=== PATIENT | male | born 1960 | race Caucasian/White ===

== ENCOUNTER → 2016-12-04 | Outpatient (CLI) | payer MEDICARE, MEDICAID ==
[~2016-12-04] MED LIST: ACHD5005 PO; ALBU17AE23 IH; ALDACTONE25 MG PO; AMIO200T2 PO; AMIO400T5 PO; ASP325T PO; ASP325TEC; ASP325TEC PO; ASP81CT PO; ATOR40TA; AZIT-21; BUDE90AE IH; CARV6.25; CARV6.252 PO; CEFD300C3 PO; CEFU500T5 PO; CLON0.252 PO; CLOP75TA PO; CLPD75T PO; CRV25T PO; DABI150C5 PO; DCS100C PO; DEXL60CA PO; DIGO250T96 PO; DLT120CCR PO; DOCU100T7 PO; DOXY100C2 PO; FAMO20TA13 PO; FRSM40T; FURO80TA3 PO; GLMP4T PO; HYDR-3730 PO; ISM30TCR PO; ISM60TCR; KCL10CCR; KCL20TCR; KCL20TCR PO; LANS30CA PO; LASIX; LEVO750T6 PO; LISI5TAB PO; LNS30CCR; LSRT50T; LVT.1T PO; METF-380 PO; MGX400T PO; MTF500T; MULT1TAB63; MULT1TAB63 PO; NITR0.3T6 SL; NTR.4SL SL; OLME5TAB3 PO; OMG1KC PO; PANT40TA PO; PHN100C PO; POLY119P PO; POTA10TA86 PO; RT-ALBUTEROL SULF 2.5 MG/3 ML PRE-MIX VIAL INH ONE; SCR1T1; SIMV80TA3; SPRN25T; STOOL SOFTENER; WARFARIN 7.5 MG; WRF10T; WRF5T
--- OUTSIDE RECORDS SUMMARY | 2016-12-04 13:05 | XMS REPORT | Continuity of Care Document ---
Author Author [facility] Organization [facility] Address Unknown Phone Unavailable Care Team Providers Care Payroll Lead Name Role Phone BRENDAN UGARTE DO PCP Insurance Providers Payer Name Policy Number Subscriber Name Relationship Wps Medicare [id number] Mis Hoang 18 Self / Same As Patient Medicaid [place] [id number] Mis Hoang 20 Self / Same As Patient Advance Directives Directive Response Recorded Date/Time Advance Directives No 02/26/15 6:00pm Health Care Power of Real Estate Development Manager No 02/26/15 6:00pm Organ Donor Yes 02/26/15 6:00pm Resuscitation Status Full Code 02/26/15 6:00pm Problems Medical Problems Problem Onset Date Status Bronchitis Unknown Active Medications Medication Dose Route Sig Days/Qty Instructions Order Date Discontinued Date Status Furosemide 06/05/07 12/08/07 Discontinued Furosemide 06/05/07 12/08/07 Discontinued Potassium Chloride 06/05/07 12/08/07 Discontinued Aspirin 06/05/07 12/08/07 Discontinued Carvedilol 06/05/07 03/08/09 Discontinued Losartan Potassium 06/05/07 03/08/09 Discontinued Spironolactone 06/05/07 12/08/07 Discontinued Warfarin Sodium 06/05/07 12/08/07 Discontinued Warfarin Sodium 06/05/07 12/08/07 Discontinued Lansoprazole 06/05/07 12/08/07 Discontinued Multivitamins 1 Tab PO DAILY 06/05/07 Active Atorvastatin Calcium 06/05/07 12/08/07 Discontinued Atorvastatin Calcium 09/06/07 03/08/09 Discontinued Lansoprazole 09/06/07 12/08/07 Discontinued Furosemide 09/06/07 12/08/07 Discontinued Furosemide 09/06/07 12/08/07 Discontinued Warfarin Sodium 09/06/07 12/08/07 Discontinued Warfarin Sodium 09/06/07 12/08/07 Discontinued Potassium Chloride 09/06/07 12/08/07 Discontinued Carvedilol 09/06/07 12/08/07 Discontinued Losartan Potassium 09/06/07 12/08/07 Discontinued Spironolactone 09/06/07 04/03/09 Discontinued Isosorbide Mononitrate 09/06/07 09/16/08 Discontinued Aspirin 325 Mg PO daily 09/06/07 03/23/13 Discontinued Magnesium Oxide 400 Mg PO DAILY 09/06/07 Active Sucralfate 09/06/07 12/08/07 Discontinued Multivitamins 09/06/07 09/16/08 Discontinued [Stool Softener] 09/06/07 12/08/07 Discontinued Fish Oil 1 PO daily 09/06/07 02/26/11 Discontinued [Lasix] 12/08/07 12/08/07 Discontinued Furosemide 12/08/07 03/08/09 Discontinued [Warfarin 7.5MG] 12/08/07 09/16/08 Discontinued Losartan Potassium 12/08/07 03/08/09 Discontinued Potassium Chloride 12/08/07 03/08/09 Discontinued Carvedilol 12/08/07 09/16/08 Discontinued Lansoprazole 12/08/07 09/16/08 Discontinued [Stool Softener] 12/08/07 03/08/09 Discontinued Metformin HCl (Glucophage) 12/08/07 09/16/08 Discontinued Metformin HCl 09/16/08 01/25/10 Discontinued Lansoprazole 09/16/08 01/25/10 Discontinued Clopidogrel Bisulfate 75 Mg PO DAILY 09/16/08 07/21/12 Discontinued Azithromycin (Zpak) 03/08/09 03/08/09 Discontinued Olmesartan Medoxomil 1 Each PO DAILY 03/08/09 02/26/11 Discontinued Carvedilol 1 Each PO TWICE A DAY 03/08/09 02/24/11 Discontinued Simvastatin 03/08/09 01/25/10 Discontinued [Stool Softener] 03/08/09 02/26/11 Discontinued Furosemide (Lasix) 1 Each PO bid 04/03/09 02/26/11 Discontinued Potassium Chloride 4 Each PO DAILY 04/03/09 02/24/11 Discontinued Levofloxacin 1 Each PO DAILY 5 Qty FOR INFECTION 08/07/09 01/25/10 Discontinued Albuterol 2 Gm IH Q 4 HOURS 1 Qty 08/07/09 01/25/10 Discontinued Metformin HCl (Glucophage) 1 Each PO TWICE A DAY WITH MEALS 01/25/10 01/09/12 Discontinued Famotidine 1 Tab PO TWICE A DAY 01/25/10 01/09/12 Discontinued Spironolactone 25 Mg PO TWICE A DAY 06/16/10 Active Potassium Chloride 20 Meq PO DAILY 02/24/11 Active Fish Oil 1,000 Mg PO DAILY 02/24/11 Active Olmesartan Medoxomil 5 Mg PO DAILY 02/24/11 07/21/12 Discontinued Carvedilol (Coreg) 6.25 Mg PO TWICE A DAY 02/24/11 Active Isosorbide Mononitrate 30 Mg PO DAILY 02/24/11 Active Furosemide (Lasix) 80 Mg PO TWICE A DAY 02/24/11 Active Phenytoin Sodium 200 Mg PO TWICE A DAY TAKES 2(100MG) CAPSULES AM AND PM , AND TAKES 1 (100MG) CAPSULE AT 1200 02/24/11 Active Lansoprazole 30 Mg PO DAILY 02/24/11 02/26/11 Discontinued Pantoprazole Sodium 40 Mg PO DAILY 02/26/11 07/21/12 Discontinued Glimepiride 4 Mg PO DAILY 01/09/12 Active Nitroglycerin 0.4 Mg SL NEEDED 01/09/12 08/24/13 Discontinued Acetaminophen/Hydrocodone Bitart 1 Each PO EVERY 8HRS PRN 10 Qty 07/21/12 Discontinued Cefuroxime Axetil (Ceftin) 500 Mg PO TWICE A DAY FOR 5 DAYS 01/09/12 07/21/12 Discontinued Famotidine 20 Mg PO DAILY 1 Qty 07/21/12 03/23/13 Discontinued Lisinopril 20 Mg PO TWICE A DAY 07/21/12 Active Clonazepam 0.25 Mg PO NEEDED 07/21/12 03/23/13 Discontinued Aspirin 325 Mg PO DAILY 03/23/13 03/24/13 Discontinued Dabigatran Etexilate Mesylate 150 Mg PO TWICE A DAY 03/23/13 Active Dexlansoprazole 60 Mg PO DAILY 03/23/13 Active Aspirin 81 Mg PO EVERY OTHER DAY 03/24/13 Active Clopidogrel Bisulfate 75 Mg PO DAILY 03/24/13 05/20/14 Discontinued Digoxin 0.25 Mg PO ,,SA,ESTEVES 08/24/13 Active Digoxin 0.5 Mg PO MON,WED,Fri08/24/13 Active Diltiazem HCl 120 Mg PO DAILY 08/24/13 Active Phenytoin Sodium 100 Mg PO DAILY @ 1200 TAKES 2(100MG) CAPSULES AM AND PM, AND TAKES 1 (100MG) CAPSULE AT 1200 08/24/13 Active Clonazepam 0.25 Mg PO DAILY PRN 08/24/13 Active Nitroglycerin 0 SL NEEDED 1 TAB EVERY 5 MINUTES X 3 DOSES NEEDED FOR CHEST PAIN 08/24/13 Active Docusate Sodium 100 Mg PO DAILY 08/24/13 05/20/14 Discontinued Polyethylene Glycol 0 PO DAILY 05/20/14 Active Levothyroxine Sodium (Levothroid) 100 Mcg PO DAILY 02/26/15 Active Amiodarone Hcl 200 Mg PO 02/26/15 Active Amiodarone Hcl 400 Mg PO DAILY 02/26/15 Active Cefdinir (Omnicef) 1 Each PO TWICE A DAY 20 Qty 02/26/15 Active Budesonide 90 Mcg IH TWICE A DAY 1 Qty 02/26/15 Active Social History Social History Problem Response Recorded Date/Time Alcohol Use Denies Use 02/26/2015 6:00pm Recreational Drug Use No 02/26/2015 6:00pm Recent Foreign Travel No 05/20/2014 8:00pm Recent Infectious Disease Exposure No 05/20/2014 8:00pm Hospitalization with Isolation Denies 05/21/2014 1:55pm Sexually Transmitted Disease No 02/26/2015 6:00pm HIV/AIDS No 02/26/2015 6:00pm Smoking Status Never a Smoker 02/26/2015 6:00pm Query Response Start Date Stop Date Smoking Status Never a Smoker Hospital Discharge Instructions No hospital discharge instructions. Plan of Care No plan of care. Functional Status No functional status results. Allergies, Adverse Reactions, Alerts Allergen Type Severity Reaction Status Last Updated No Known Drug Allergies Active 09/06/07 Immunizations Name Given Type Date of Pneumonia Vaccine 09/22/12 Historical Date of Influenza Vaccine 08/09/13 Historical Vital Signs Acute Vital Signs Vital Response Date/Time Temperature (Fahrenheit) 99 degrees F (97.6 - 99.5) Temperature (Calculated Celsius) 37.2252 degrees C (36.4 - 37.5) Pulse Rate (adult) 72 bpm (60 - 90) Respiratory Rate 18 bpm (12 - 24) O2 Sat by Pulse Oximetry 93 % (88 - 100) Blood Pressure 114/80 mm Hg Pain Pain Intensity 0 Height (Feet) 5 feet Height (Inches) 10.00 inches Height (Calculated Centimeters) 177.102909 cm Weight (Pounds) 228 pounds Weight (Ounces) 8.0 oz Weight (Calculated Grams) 402149.858 gm Weight (Calculated Kilograms) 103.466800 kilograms Calculated BMI 28.12 Results Laboratory Results Test Name Result Units Flags Reference Collection Date/Time Result Date/ Time Comments White Blood Count 8.5 10^3/uL 4.3-11.0 02/26/2015 6:27pm 02/26/2015 6: 36pm Red Blood Count 4.52 10^6/uL 4.35-5.85 02/26/2015 6:27pm 02/26/2015 6: 36pm Hemoglobin 14.7 G/DL 13.3-17.7 02/26/2015 6:pm 02/26/2015 6:36pm Hematocrit 43 % 40-54 02/26/2015 6:02/26/2015 6:36pm Mean Corpuscular Volume 96 FL 80-99 02/26/2015 6:pm 02/26/2015 6: 36pm Mean Corpuscular Hemoglobin 33 PG 25-34 02/26/2015 6:pm 02/26/2015 6: 36pm Mean Corpuscular Hemoglobin Concent 34 G/DL 32-36 02/26/2015 6:pm 6:36pm Red Cell Distribution Width 13.7 % 10.0-14.5 02/26/2015 6:27pm 2014 6:36pm Platelet Count 159 10^3/uL 130-400 02/26/2015 6:02/26/2015 6:36pm Mean Platelet Volume 9.9 FL 7.4-10.4 02/26/2015 6:27pm 02/26/2015 6: 36pm Neutrophils (%) (Auto) 62 % 42-75 02/26/2015 6:pm 02/26/2015 6:36pm Lymphocytes (%) (Auto) 22 % 12-44 02/26/2015 6:pm 02/26/2015 6:36pm Monocytes (%) (Auto) 12 % 0-12 02/26/2015 6:pm 02/26/2015 6:36pm Eosinophils (%) (Auto) 3 % 0-10 02/26/2015 6:pm 02/26/2015 6:36pm Basophils (%) (Auto) 0 % 0-10 02/26/2015 6:pm 02/26/2015 6:36pm Neutrophils # (Auto) 5.3 X 10^3 1.8-7.8 02/26/2015 6:27pm 02/26/2015 6: 36pm Lymphocytes # (Auto) 1.9 X 10^3 1.0-4.0 02/26/2015 6:pm 02/26/2015 6: 36pm Monocytes # (Auto) 1.0 X 10^3 0.0-1.0 02/26/2015 6:27pm 02/26/2015 6: 36pm Eosinophils # (Auto) 0.3 10^3/uL 0.0-0.3 02/26/2015 6:27pm 02/26/2015 6 :36pm Basophils # (Auto) 0.0 10^3/uL 0.0-0.1 02/26/2015 6:pm 02/26/2015 6: 36pm Prothrombin Time 18.4 SEC H 12.2-14.7 02/26/2015 6:pm 02/26/2015 6: 47pm INR Comment 1.6 H 0.8-1.4 02/26/2015 6:02/26/2015 6:47pm INTERPRETIVE DATA SUGGESTED THERAPEUTIC RANGE FOR INR'S: VENOUS THROMBOSIS, PULMONARY EMBOLISM, OR PREVENTION OF SYSTEMIC EMBOLISM (EG. IN ATRIAL FIBRILLATION): 2.0 - 3.0 MECHANICAL PROSTHETIC HEART VALVES: 2.5 - 3.5* *NOTE: INR'S UP TO 4.5 MAY BE NECESSARY IN SELECTED GROUPS OF HIGH RISK PATIENTS. [employer] [place] [employer] CONSENSUS CONFERENCE ON ANTITHROMBOTIC THERAPY (2000). Activated Partial Thromboplast Time 45 SEC H 24-35 02/26/2015 6: 6:47pm Sodium Level 138 MMOL/L 135-145 02/26/2015 6:02/26/2015 7:13pm Potassium Level 4.1 MMOL/L 3.6-5.0 02/26/2015 6:02/26/2015 7:13pm Chloride Level 102 MMOL/L 98-107 02/26/2015 6:02/26/2015 7:13pm Carbon Dioxide Level 24 MMOL/L 21-32 02/26/2015 6:02/26/2015 7: 13pm Blood Urea Nitrogen 16 MG/DL 7-18 02/26/2015 6:02/26/2015 7:13pm Creatinine 0.90 MG/DL 0.60-1.30 02/26/2015 6:02/26/2015 7:13pm BUN/Creatinine Ratio 18 02/26/2015 6:02/26/2015 7:13pm Estimat Glomerular Filtration Rate > 60 02/26/2015 6:2014 7:13pm GFR INTERPRETIVE DATA UNITS FOR ESTIMATED GFR (eGFR): mL/min/1.73 M2 REFERENCE RANGE FOR ESTIMATED GFR (eGFR) eGFR NORMAL eGFR >60 MODERATELY DECREASED eGFR 30-59 SEVERLY DECREASED eGFR 15-29 KIDNEY FAILURE <15 (OR DIALYSIS) Glucose Level 80 MG/DL 70-105 02/26/2015 6:02/26/2015 7:13pm Calcium Level 8.7 MG/DL 8.5-10.1 02/26/2015 6:02/26/2015 7:13pm Magnesium Level 1.9 MG/DL 1.8-2.4 02/26/2015 6:02/26/2015 7:20pm Total Bilirubin 0.9 MG/DL 0.1-1.0 02/26/2015 6:02/26/2015 7:13pm Alkaline Phosphatase 122 U/L 40-136 02/26/2015 6:02/26/2015 7: 13pm Aspartate Amino Transf (AST/SGOT) 25 U/L 5-34 02/26/2015 6:272014 7:13pm Alanine Aminotransferase (ALT/SGPT) 25 U/L 0-55 02/26/2015 6:27pm 02/26 7:13pm Troponin I < 0.30 NG/ML <0.30 02/26/2015 6:27pm 02/26/2015 7:13pm B-Type Natriuretic Peptide 752.9 PG/ML H <100.0 02/26/2015 6:2014 7:18pm Total Protein 7.0 G/DL 6.4-8.2 02/26/2015 6:02/26/2015 7:13pm Albumin 3.8 G/DL 3.2-4.5 02/26/2015 6:pm 02/26/2015 7:13pm Digoxin Level < 0.30 NG/ML L 0.80-2.00 02/26/2015 6:27pm 02/26/2015 7: 13pm Phenytoin (Dilantin) Level 12.8 UG/ML 10.0-20.0 02/26/2015 6:27pm 02/26 7:13pm Procedures Procedure Status Date Provider(s) Tracing only of electrocardiogram completed 02/26/15 AMAURI WANG DO Encounters Encounter Location Date/Time Departed Emergency Room Via [facility] 02/26/15 5:53pm Recent Diagnosis
== END ==
LOC: RT 13:02
PROVIDERS: ATTEND Internal Medicine Critical Care Medicine
DX: J98.4 Other disorders of lung (principal); E66.9 Obesity, unspecified
CPT/HCPCS: 94060; 94640; 94726; 94729

== ENCOUNTER → 2016-12-20 | Outpatient (CLI) | payer MEDICARE, MEDICAID ==
[~2016-12-20] MED LIST changes: -RT-ALBUTEROL SULF 2.5 MG/3 ML PRE-MIX VIAL INH ONE
--- OUTSIDE RECORDS SUMMARY | 2016-12-20 09:29 | XMS REPORT | Continuity of Care Document ---
Author Author [facility] Organization [facility] Address Unknown Phone Unavailable Care Team Providers Care Training And Quality Manager Name Role Phone BRENDAN UGARTE DO PCP Insurance Providers Payer Name Policy Number Subscriber Name Relationship Wps Medicare [id number] Mis Hoang 18 Self / Same As Patient Medicaid [place] [id number] Mis Hoang 20 Self / Same As Patient Advance Directives Directive Response Recorded Date/Time Advance Directives No 02/26/15 6:00pm Health Care Power of Diver Pumper No 02/26/15 6:00pm Organ Donor Yes 02/26/15 [...] Height (Inches) 10.00 inches Height (Calculated Centimeters) 177.635754 cm Weight (Pounds) 228 pounds Weight (Ounces) 8.0 oz Weight (Calculated Grams) 725510.858 gm Weight (Calculated Kilograms) 103.758028 kilograms Calculated BMI 28.12 Results Laboratory Results [...] SELECTED GROUPS OF HIGH RISK PATIENTS. [employer] [place] [employer] CONSENSUS CONFERENCE ON [...] Encounter Location Date/Time Departed Emergency Room Via [facility] 02/26/15 5:53pm Recent Diagnosis
--- NOTE | 2016-12-20 12:09 | Diagnostic Imaging Report ---
PROCEDURE: CT chest without contrast. TECHNIQUE: Multiple contiguous axial images were obtained through the chest without the use of intravenous contrast. INDICATION: Dyspnea. COPD, shortness of breath. FINDINGS: There is no significant consolidation, mass, or suspicious nodule in the lungs. There is calcified granuloma in the right lung base. There is minimal atelectasis in the dependent posterior aspect of the right lower lobe in the base. There is no pleural effusion. The cardiac size is enlarged with prominent coronary artery calcifications seen. There is a pacemaker with three cardiac leads seen. There is no mediastinal mass. No mediastinal lymphadenopathy noted. The hilar vessels are not opacified on this exam with no obvious hilar mass. There is no axillary lymphadenopathy. There is healed sternotomy noted with sternotomy wires in place. Sections in the upper abdomen demonstrate mild ascites. The osseous structures demonstrate mild degenerative changes. IMPRESSION: 1. Cardiomegaly with no evidence of pulmonary edema. Minimal right basilar atelectasis. 2. Ascites seen in the upper sections of the abdomen. Dictated by: Dictated on workstation # [id number]
== END ==
LOC: RAD 09:24
PROVIDERS: ATTEND Internal Medicine Critical Care Medicine
DX: R06.00 Dyspnea, unspecified (principal); J98.4 Other disorders of lung; E66.9 Obesity, unspecified
CPT/HCPCS: 71250

== ENCOUNTER 2016-12-22 11:18 | Emergency (ER) | payer MEDICARE, MEDICAID ==
[~2016-12-22] VITALS: Ht 177.8 cm; Wt 113.4 kg
--- OUTSIDE RECORDS SUMMARY | 2016-12-22 11:24 | XMS REPORT | Continuity of Care Document ---
Author Author [facility] Organization [facility] Address Unknown Phone Unavailable Care Team Providers Care Soft Drink Powder Mixer Name Role Phone BRENDAN UGARTE DO PCP Insurance Providers Payer Name Policy Number Subscriber Name Relationship Wps Medicare [id number] Mis Hoang 20 Self / Same As Patient Medicaid [place] [id number] Mis Hoang 20 Self / Same As Patient Advance Directives Directive Response Recorded Date/Time Advance Directives No 02/26/15 6:00pm Health Care Power of Rail Operator No 02/26/15 6:00pm Organ Donor Yes 02/26/15 [...] Height (Inches) 10.00 inches Height (Calculated Centimeters) 177.758944 cm Weight (Pounds) 228 pounds Weight (Ounces) 8.0 oz Weight (Calculated Grams) 333853.858 gm Weight (Calculated Kilograms) 103.051618 kilograms Calculated BMI 28.12 Results Laboratory Results [...] SELECTED GROUPS OF HIGH RISK PATIENTS. [employer] [place] [employer] CONSENSUS CONFERENCE ON [...] Encounter Location Date/Time Departed Emergency Room Via [facility] 02/26/15 5:53pm Recent Diagnosis
--- NOTE | 2016-12-22 11:35 | ED Chest Pain ---
General Chief Complaint: Respiratory Problems Stated Complaint: SOA/UNABLE TO URINATE Nursing Triage Note: AMBULATED TO ROOM 07 WITH COMPLAINTS OF SOA ET RETAINING FLUID X2 DAYS. STATES HE HAS BEEN TAKING AN EXTRA LASIX THE PAST TWO DAYS. Nursing Sepsis Screen: No Definite Risk Source: patient Exam Limitations: no limitations History of Present Illness Time seen by provider: 11:32 Initial Comments 2-3 days of shortness of breath, midsternal aching in the chest on deep inspiration and swelling of the belly and hands and feet. The patient started taking an extra dose of Lasix on top of his 80 mg twice a day Lasix 2 days ago but has not felt that this helped. He presents today because he is short of breath with a mild occasional cough, malaise, fatigue. No history of fever, chills, nausea, vomiting, diarrhea, constipation, skin rash. The patient states she had a chest x-ray about a month ago showing something wrong with his lung but is not aware of what it is. He also states that last week he was told he has COPD. Patient states he quit drinking over 10 years ago never a smoker and does not use recreational or IV drugs. Allergies and Home Medications Allergies Coded Allergies: No Known Drug Allergies (Verified , 09/06/07) Home Medications Amiodarone Hcl 200 Mg Tablet 200 MG PO DAILY (Reported) Aspirin 81 Mg Chew 81 MG PO EVERY OTHER DAY (Reported) Carvedilol 6.25 Mg Tablet 6.25 MG PO BID (Reported) Dabigatran Etexilate Mesylate 150 Mg Capsule 150 MG PO BID (Reported) Dexlansoprazole 60 Mg 60 MG PO DAILY (Reported) Furosemide 80 Mg Tablet 80 MG PO BID (Reported) Glimepiride 4 Mg Tab 4 MG PO DAILY (Reported) Hydrocodone/Acetaminophen 1 Each Tablet #35 1-2 EACH PO Q6H Prescribed by: MAX THOMSON on 04/13/15 1436 Isosorbide Mononitrate 30 Mg Tab 30 MG PO DAILY (Reported) Levothyroxine Sodium 100 Mcg Tablet 100 MCG PO DAILY (Reported) Lisinopril 5 Mg Tablet 20 MG PO BID (Reported) Magnesium Oxide 400 Mg Tab 400 MG PO DAILY (Reported) Multivitamins 1 Ea Tablet 1 TAB PO DAILY (Reported) Nitroglycerin 0.4 Mg Tab 0 SL PRN (Reported) 1 TAB EVERY 5 MINUTES X 3 DOSES NEEDED FOR CHEST PAIN [place] 3 Polyunsat Fatty Acids 1,000 Mg Cap 1,000 MG PO DAILY (Reported) Phenytoin Sodium 100 Mg Cap 200 MG PO BID (Reported) TAKES 2(100MG) CAPSULES AM AND PM, AND TAKES 1 (100MG) CAPSULE AT 1200 Phenytoin Sodium 100 Mg Cap 100 MG PO DAILY @ 1200 (Reported) TAKES 2(100MG) CAPSULES AM AND PM, AND TAKES 1 (100MG) CAPSULE AT 1200 Polyethylene Glycol 119 Gm Btl 0 PO DAILY (Reported) 17 GM Spironolactone 25 Mg Tablet 25 MG PO BID (Reported) Review of Systems Constitutional: No chills, No diaphoresis, No fever, No malaise, weight gain EENTM: No Throat Swelling Respiratory: Cough SOA With ExertionDenies Wheezing Cardiovascular: Chest Pain Edema (aching F abdomen and bilateral feet and hands) Gastrointestinal: Abdomen DistendedDenies Abdominal Pain, Denies Constipated, Denies Diarrhea, Denies Nausea Genitourinary: Denies Burning, Denies Discharge, Denies Drainage Musculoskeletal: No joint pain, No joint swelling Skin: No pruritus, No rash Endocrine: Denies Excessive Sweating, Denies Flushing Hematologic/Lymphatic: Denies Easy Bleeding, Denies Easy Bruising Past Zvwtrjt-Ttqeyf-Agdmvc Hx Patient Social History Alcohol Use: Past History (quit 10 years ago) Recreational Drug Use: No Smoking Status: Never a Smoker Recent Foreign Travel: No Contact w/Someone Who Travel: No Recent Infectious Disease Expo: No Recent Hopitalizations: Yes (BIPASS, PACER, BROKEN ANKLE AND ARM) Immunizations Up To Date Date of Pneumonia Vaccine: Sep 22, 2012 Date of Influenza Vaccine: Aug 09, 2013 Surgeries HX Surgeries: Yes (LEFT ANKLE, HIATAL HERNIA, SEBACEOUS CYST/BACK, EGD) Surgeries: Abdominal, Cardiac, CABG, Coronary Stent, Defibrillator, Orthopedic , Pacemaker Respiratory Hx Respiratory Disorders: Yes Respiratory Disorders: Chronic Bronchitis, COPD, Emphysema Cardiovascular Hx Cardiac Disorders: Yes (CABG X 3, STENTS X 2 , PACEMAKER /DEFIB, SEVERE PULMONARY HTN, CHF) Cardiac Disorders: Atrial Fibrillation, Chronic Edema/Swelling, Coronary Artery Disease, Heart Attack, High Cholesterol, Hypertension, Peripheral Vascular Neurological Hx Neurological Disorders: No Neurological Disorders: Seizure Disorder Reproductive System Hx Reproductive Disorders: No Sexually Transmitted Disease: No HIV/AIDS: No Genitourinary Hx Genitourinary Disorders: No Gastrointestinal Hx Gastrointestinal Disorders: Yes Gastrointestinal Disorders: Gastroesophageal Reflux, Liver Disease/Jaundice, Hiatal Hernia, Ulcer Musculoskeletal Hx Musculoskeletal Disorders: Yes (LEFT ANKLE SURGERY) Musculoskeletal Disorders: Arthritis Endocrine Hx Endocrine Disorders: Yes Endocrine Disorders: Hypothyroidsim, Diabetes, Non-Insulin dep HEENT HX ENT Disorders: Yes (glasses) Loss of Vision: Denies Hearing Impairment: Denies Cancer Hx Cancer: No Psychosocial Hx Psychiatric Problems: No Integumentary HX Skin/Integumentary Disorder: No Blood Transfusions Hx Blood Disorders: No Adverse Reaction to a Blood Tr: No Family Medical History Family Medial History: Chest pain 19 FATHER Family history: Arthritis 19 FATHER Family history: Cardiovascular disease 19 FATHER G8 BROTHER Myocardial infarction 19 FATHER Physical Exam Vital Signs Vital Sign - Last 12Hours 12/22/16 12/22/16 11:28 11:49 Temp 97.6 Pulse 125 Resp 20 B/P 123/105 Pulse Ox 96 O2 Delivery Room Air O2 Flow Rate 2 Capillary Refill : Less Than 3 Seconds General Appearance: No Apparent Distress WD/WN HEENT: PERRL/EOMI TMs Normal Normal ENT Inspection Pharynx Normal Neck: Normal Inspection SuppleNo JVD Respiratory: Chest Non Tender Lungs Clear Normal Breath Sounds No Accessory Muscle Use No Respiratory Distress Cardiovascular: No JVD Normal Peripheral Pulses Irregularly Irregular Other ( swelling in his hands and abdomen and feet 1+ edema) Gastrointestinal: Normal Bowel Sounds Non Tender Soft Extremity: Normal Capillary Refill Normal Range of Motion No Calf Tenderness Pedal Edema Neurologic/Psychiatric: Alert Oriented x3 Normal Mood/Affect Skin: Normal Color Warm/Dry Progress/Results/Core Measures Results/Orders Lab Results Laboratory Tests Test 12/22/16 12:04 12/22/16 12:42 Range/Units Activated Partial Thromboplast Time 41 H 24-35 SEC Alanine Aminotransferase (ALT/SGPT) 33 0-55 U/L Albumin 2.9 L 3.2-4.5 G/DL Alkaline Phosphatase 100 40-136 U/L Anion Gap 7 5-14 MMOL/L Aspartate Amino Transf (AST/SGOT) 24 5-34 U/L B-Type Natriuretic Peptide 661.4 H <100.0 PG/ML BUN/Creatinine Ratio 30 Basophils # (Auto) 0.0 0.0-0.1 10^3/uL Basophils (%) (Auto) 0 0-10 % Blood Urea Nitrogen 26 H 7-18 MG/DL Calcium Level 7.5 L 8.5-10.1 MG/DL Carbon Dioxide Level 26 21-32 MMOL/L Chloride Level 104 98-107 MMOL/L Creatinine 0.87 0.60-1.30 MG/DL Eosinophils # (Auto) 0.1 0.0-0.3 10^3/uL Eosinophils (%) (Auto) 1 0-10 % Estimat Glomerular Filtration Rate > 60 Glucose Level 114 H 70-105 MG/DL Hematocrit 44 40-54 % Hemoglobin 15.3 13.3-17.7 G/DL INR Comment 1.5 H 0.8-1.4 Lymphocytes # (Auto) 2.1 1.0-4.0 X 10^3 Lymphocytes (%) (Auto) 21 12-44 % Magnesium Level 2.0 1.8-2.4 MG/DL Mean Corpuscular Hemoglobin 33 25-34 PG Mean Corpuscular Hemoglobin Concent 35 32-36 G/DL Mean Corpuscular Volume 95 80-99 FL Mean Platelet Volume 10.4 7.4-10.4 FL Monocytes # (Auto) 1.2 H 0.0-1.0 X 10^3 Monocytes (%) (Auto) 12 0-12 % Myoglobin 71.4 10.0-92.0 NG/ML Neutrophils # (Auto) 6.9 1.8-7.8 X 10^3 Neutrophils (%) (Auto) 67 42-75 % Platelet Count 153 130-400 10^3/uL Potassium Level 4.1 3.6-5.0 MMOL/L Prothrombin Time 18.1 H 12.2-14.7 SEC Red Blood Count 4.69 4.35-5.85 10^6/uL Red Cell Distribution Width 13.7 10.0-14.5 % Sodium Level 137 135-145 MMOL/L Total Bilirubin 0.5 0.1-1.0 MG/DL Total Protein 4.9 L 6.4-8.2 G/DL Troponin I < 0.30 <0.30 NG/ML White Blood Count 10.3 4.3-11.0 10^3/uL Urine Bacteria NEGATIVE /HPF Urine Bilirubin NEGATIVE NEGATIVE Urine Casts PRESENT /LPF Urine Clarity CLEAR Urine Color YELLOW Urine Crystals NONE /LPF Urine Culture Indicated NO Urine Glucose (UA) NEGATIVE NEGATIVE Urine Hyaline Casts 25-50 H /LPF Urine Ketones NEGATIVE NEGATIVE Urine Leukocyte Esterase NEGATIVE NEGATIVE Urine Mucus NEGATIVE /LPF Urine Nitrite NEGATIVE NEGATIVE Urine Protein NEGATIVE NEGATIVE Urine RBC NONE /HPF Urine RBC (Auto) NEGATIVE NEGATIVE Urine Specific [place] 1.015 L 1.016-1.022 Urine Squamous Epithelial Cells RARE /HPF Urine Urobilinogen 1 NORMAL MG/DL Urine WBC NONE /HPF Urine pH 6.5 5-9 My Orders Orders-ITZ HUGHES MD Cbc With Automated Diff (12/22/16 11:35) Magnesium (12/22/16 11:35) Ekg Tracing (12/22/16 11:35) Cardiac Profile 1 (12/22/16 11:35) Comprehensive Metabolic Panel (12/22/16 11:35) Myoglobin Serum (12/22/16 11:35) Protime With Inr (12/22/16 11:35) Partial Thromboplastin Time (12/22/16 11:35) O2 (12/22/16 11:35) Monitor-Rhythm Ecg Trace Only (12/22/16 11:35) Aspirin Chewable Tablet (Baby Aspirin Ch (12/22/16 11:45) Saline Lock/Iv-Start (12/22/16 11:35) BNP (12/22/16 11:35) Chest Pa/Lat (2 View) (12/22/16 11:35) Furosemide Injection (Lasix Injection) (12/22/16 12:15) Ua Culture If Indicated (12/22/16 12:11) Troponin I (12/22/16 13:53) Medications Given in ED Current Medications Medications Dose Ordered Sig/Ericka Route Start Time Stop Time Status Last Admin Dose Admin Aspirin 324 mg ONCE ONCE PO 12/22/16 11:45 12/22/16 11:46 DC 12/22/16 12:41 324 MG Furosemide 80 mg ONCE ONCE IVP 12/22/16 12:15 12/22/16 12:16 DC 12/22/16 12:41 80 MG Vital Signs/I&O Vital Sign - Last 12Hours 12/22/16 12/22/16 12/22/16 11:28 11:49 14:49 Temp 97.6 98.0 Pulse 125 82 Resp 20 18 B/P 123/105 Pulse Ox 96 96 O2 Delivery Room Air Nasal Cannula Room Air O2 Flow Rate 2 2 Blood Pressure Mean: 111 Progress Note : Time: 12:08 Progress Note Patient reports this weight gain, swelling around his belly and feet not responding to an increase dose of Lasix. For the past 2 days she's been taking 240 mg daily Lasix so we will give him IV Lasix 80 mg 1. We will treat his chest ache has chest pain workup and get a delta troponin if the initial troponin is negative. Chest x-ray and basic set of labs. Delta troponin shows no change at 2 hours. His chest aching improve with some Lasix after he put out about 1.25 L of urine. He could go home as he has plans for close follow-up with his PCP. Diagnostic Imaging Diagonstic Imaging: Xray Plain Films/CT/US/NM/MRI: chest (PA/LAt) Comments Images reviewed by me no osseous fractures. No infiltrates suggestive of infection however there are mild, fluffy pulmonary edematous looking infiltrates bilaterally. Heart shadow is enlarged with normal mediastinum. Lung alfonso inflated. Reviewed: Reviewed by Me Departure Impression Impression: Primary Impression: Edema Qualified Code: R60.1 - Generalized edema Disposition: HOME, SELF-CARE Condition: Improved Departure-Patient Inst. Decision time for Depature: 14:41 Referrals: BRENDAN UGARTE DO (PCP/Family) Primary Care Physician Follow up tomorrow. Patient Instructions: Heart Failure, Adult (DC) Add. Discharge Instructions: Follow up with your primary care physician in the morning to help manage your heart failure exacerbation. You need to start weighing yourself daily and if you have more than a 5 pound weight gain over few days he should take extra doses of Lasix or call your primary care physician for instructions. Her chest pain and shortness of breath today appears to be from fluid overload so we've given you some IV Lasix. He may need to go to your primary care physician for more IM Lasix and should follow-up tomorrow. If you have worsening shortness of breath or chest pain should return to the ER. Keep your appointment with your heart doctor Dr. Suarez. All discharge instructions reviewed with patient and/or family. Voiced understanding. ITZ HUGHES MD Dec 22, 2016 11:35
[2016-12-22] MEDS ORDERED: ASPIRIN 81 MG CHEW (CHILDREN'S ASA) PO ONE (11:45)
[2016-12-22 12:10] LABS: BASOPHILS % (AUTO) 0 % (0-10); EOSINOPHILS # (AUTO) 0.1 10^3/uL (0.0-0.3); EOSINOPHILS % (AUTO) 1 % (0-10); LYMPHOCYTES # (AUTO) 2.1 X 10^3 (1.0-4.0); LYMPHOCYTES % (AUTO) 21 % (12-44); MEAN CORPUSCULAR HEMOGLOBIN 33 PG (25-34); MEAN CORPUSCULAR HGB CONC 35 G/DL (32-36); MEAN CORPUSCULAR VOLUME 95 FL (80-99); MEAN PLATELET VOLUME 10.4 FL (7.4-10.4); MONOCYTES # (AUTO) 1.2 X 10^3 (0.0-1.0); MONOCYTES % (AUTO) 12 % (0-12); NEUTROPHILS # (AUTO) 6.9 X 10^3 (1.8-7.8); NEUTROPHILS % (AUTO) 67 % (42-75); PLATELET COUNT 153 10^3/uL (130-400); RED BLOOD COUNT 4.69 10^6/uL (4.35-5.85); RED CELL DISTRIBUTION WIDTH 13.7 % (10.0-14.5); WHITE BLOOD COUNT 10.3 10^3/uL (4.3-11.0)
[2016-12-22] MEDS ORDERED: FUROSEMIDE 40 MG/4 ML INJ (LASIX) IVP ONE (12:15)
[2016-12-22 12:23] LABS: INR 1.5 (0.8-1.4); PROTHROMBIN TIME PATIENT 18.1 SEC (12.2-14.7)
[2016-12-22 12:33] LABS: ALANINE AMINOTRANSFERASE 33 U/L (0-55); ALBUMIN 2.9 G/DL (3.2-4.5); ANION GAP 7 MMOL/L (5-14); ASPARTATE AMINO TRANSFERASE 24 U/L (5-34); BILIRUBIN,TOTAL 0.5 MG/DL (0.1-1.0); BLOOD UREA NITROGEN 26 MG/DL (7-18); BUN/CREATININE RATIO 30; CALCIUM 7.5 MG/DL (8.5-10.1); CARBON DIOXIDE 26 MMOL/L (21-32); CHLORIDE 104 MMOL/L (98-107); CREATININE SERUM 0.87 MG/DL (0.60-1.30); GFR ESTIMATED > 60; GLUCOSE 114 MG/DL (70-105); POTASSIUM 4.1 MMOL/L (3.6-5.0); SODIUM 137 MMOL/L (135-145); TOTAL PROTEIN 4.9 G/DL (6.4-8.2)
--- NOTE | 2016-12-22 12:37 | Diagnostic Imaging Report ---
INDICATION: Shortness of breath. COMPARISON: 11/19/2016. FINDINGS: Two views of the chest are obtained. Heart size is enlarged but unchanged. Pacer device in the left chest is stable. Postoperative changes are again seen in the mediastinum. There is no pneumothorax or pleural fluid. Mild increase in the interstitial markings is stable. No focal pneumonia is seen. Osseous structures appear unremarkable. IMPRESSION: No radiographic evidence of an acute cardiopulmonary abnormality. No significant interval change from the prior study. Dictated by: Dictated on workstation # [id number]
[2016-12-22 12:39] LABS: MYOGLOBIN SERUM 71.4 NG/ML (10.0-92.0)
[2016-12-22 12:50] LABS: BILIRUBIN,URINE NEGATIVE (NEGATIVE); KETONES,URINE NEGATIVE (NEGATIVE); LEUKOCYTE ESTERASE ,URINE NEGATIVE (NEGATIVE); NITRITE,URINE NEGATIVE (NEGATIVE); PH,URINE 6.5 (5-9); PROTEIN,URINE NEGATIVE (NEGATIVE); UROBILINOGEN,URINE 1 MG/DL (NORMAL)
[2016-12-22 13:01] LABS: HYALINE CASTS, URINE 25-50 /LPF; SQUAMOUS EPITHELIAL CELL,UR RARE /HPF
[2016-12-22 14:49] VITALS: BP 100/75
== END 2016-12-22 14:49 | disposition home or self-care (01) ==
LOC: EDUNIT# 11:18 → ER 11:20
DX: R60.0 Localized edema (principal); E11.9 Type 2 diabetes mellitus without complications; Z79.82 Long term (current) use of aspirin; Z79.899 Other long term (current) drug therapy; Z95.5 Presence of coronary angioplasty implant and graft; Z95.1 Presence of aortocoronary bypass graft; Z95.810 Presence of automatic (implantable) cardiac defibrillator
CPT/HCPCS: 36415; 71020; 80053; 81000; 83735; 83874; 83880; 84484; 85025; 85610; 85730; 93005; 93041; 96374

== ENCOUNTER → 2016-12-30 | Outpatient (CLI) | payer MEDICARE, MEDICAID ==
--- OUTSIDE RECORDS SUMMARY | 2016-12-30 13:02 | XMS REPORT | Continuity of Care Document ---
Author Author [facility] Organization [facility] Address Unknown Phone Unavailable Care Team Providers Care [employer] Inspector Name Role Phone BRENDAN UGARTE DO PCP Insurance Providers Payer Name Policy Number Subscriber Name Relationship [employer] [id number] Mis Hoang 20 Self / Same As Patient Medicaid [place] [id number] Mis Hoang 20 Self / Same As Patient Advance Directives Directive Response Recorded Date/Time Advance Directives No 02/26/15 6:00pm Health Care Power of Assistant Finance Director No 02/26/15 6:00pm Organ Donor Yes 02/26/15 [...] Height (Inches) 10.00 inches Height (Calculated Centimeters) 177.608785 cm Weight (Pounds) 228 pounds Weight (Ounces) 8.0 oz Weight (Calculated Grams) 577786.858 gm Weight (Calculated Kilograms) 103.268597 kilograms Calculated BMI 28.12 Results Laboratory Results [...] Encounter Location Date/Time Departed Emergency Room [facility] 02/26/15 5:53pm Recent Diagnosis
[2016-12-30 13:17] LABS: BASOPHILS % (AUTO) 0 % (0-10); EOSINOPHILS # (AUTO) 0.2 10^3/uL (0.0-0.3); EOSINOPHILS % (AUTO) 2 % (0-10); LYMPHOCYTES # (AUTO) 1.8 X 10^3 (1.0-4.0); LYMPHOCYTES % (AUTO) 19 % (12-44); MEAN CORPUSCULAR HEMOGLOBIN 32 PG (25-34); MEAN CORPUSCULAR HGB CONC 34 G/DL (32-36); MEAN CORPUSCULAR VOLUME 97 FL (80-99); MONOCYTES # (AUTO) 1.5 X 10^3 (0.0-1.0); MONOCYTES % (AUTO) 16 % (0-12); NEUTROPHILS % (AUTO) 63 % (42-75); PLATELET COUNT 156 10^3/uL (130-400); RED BLOOD COUNT 4.88 10^6/uL (4.35-5.85); RED CELL DISTRIBUTION WIDTH 13.8 % (10.0-14.5); WHITE BLOOD COUNT 9.6 10^3/uL (4.3-11.0)
[2016-12-30 13:37] LABS: ANION GAP 7 MMOL/L (5-14); BLOOD UREA NITROGEN 26 MG/DL (7-18); BUN/CREATININE RATIO 22; CALCIUM 8.2 MG/DL (8.5-10.1); CARBON DIOXIDE 29 MMOL/L (21-32); CHLORIDE 102 MMOL/L (98-107); GFR ESTIMATED > 60; GLUCOSE 135 MG/DL (70-105); POTASSIUM 5.2 MMOL/L (3.6-5.0); SODIUM 138 MMOL/L (135-145)
--- NOTE | 2016-12-30 14:13 | Diagnostic Imaging Report ---
INDICATION: Respiratory infection x 2 weeks. EXAMINATION: PA and lateral chest. FINDINGS: There are postop changes from CABG surgery. There is a dual-chamber pacemaker. The heart size and pulmonary vascularity are normal. The lungs are clear. IMPRESSION: No acute abnormalities in the chest. Dictated by: Dictated on workstation # [id number]
== END ==
LOC: RAD 12:58
PROVIDERS: ATTEND Family Medicine
DX: R06.02 Shortness of breath (principal); R05 Cough; R60.0 Localized edema
CPT/HCPCS: 36415; 71020; 80048; 83880; 85025

== ENCOUNTER 2017-02-19 12:16 | Emergency (ER) | payer MEDICARE, MEDICAID ==
[~2017-02-19] VITALS: Ht 177.8 cm; Wt 104.3 kg
--- NOTE | 2017-02-19 12:26 | ED Chest Pain ---
General Stated Complaint: SOA Source: patient Exam Limitations: no limitations History of Present Illness Time seen by provider: 12:26 Initial Comments To ER with reports of chest pain and shortness of breath that began this morning at around 9 a.m. The pain was described as a tightness and he felt as though he could not catch his breath. He was sweeping floors at the time. This lasted for about 30 minutes before it resolved. At the time of presentation to the emergency room he is symptom-free. He does have a history [place] [address] Vaughn, primary linen sorter is Dr. Suarez. He states he is scheduled to have a new pacemaker placed this month. Timing/Duration: 1-3 hours Severity/Quality: moderate Location: central [facility] po BAG LOADER MACHINE OPERATOR: No NTG SL BAG LOADER MACHINE OPERATOR: No Associated Symptoms: No abdominal pain, No back pain, No diaphoresis, No nausea /vomiting Allergies and Home Medications Allergies Coded Allergies: No Known Drug Allergies (Verified , 09/06/07) Home Medications Amiodarone Hcl 200 Mg Tablet, 200 MG PO DAILY, (Reported) Aspirin 81 Mg Chew, 81 MG PO EVERY OTHER DAY, (Reported) Carvedilol 6.25 Mg Tablet, 6.25 MG PO BID, (Reported) Dabigatran Etexilate Mesylate 150 Mg Capsule, 150 MG PO BID, (Reported) Dexlansoprazole 60 Mg Emir., 60 MG PO DAILY, (Reported) Furosemide 80 Mg Tablet, 80 MG PO BID, (Reported) Glimepiride 4 Mg Tab, 4 MG PO DAILY, (Reported) Hydrocodone/Acetaminophen 1 Each Tablet, 1-2 EACH PO Q6H, #35 Prescribed by: MAX THOMSON on 04/13/15 1436 Isosorbide Mononitrate 30 Mg Tab, 30 MG PO DAILY, (Reported) Levothyroxine Sodium 100 Mcg Tablet, 100 MCG PO DAILY, (Reported) Lisinopril 5 Mg Tablet, 20 MG PO BID, (Reported) Magnesium Oxide 400 Mg Tab, 400 MG PO DAILY, (Reported) Multivitamins 1 Ea Tablet, 1 TAB PO DAILY, (Reported) Nitroglycerin 0.4 Mg Tab, 0 SL PRN, (Reported) 1 TAB EVERY 5 MINUTES X 3 DOSES NEEDED FOR CHEST PAIN [place] 3 Polyunsat Fatty Acids 1,000 Mg Cap, 1,000 MG PO DAILY, (Reported) Phenytoin Sodium 100 Mg Cap, 200 MG PO BID, (Reported) TAKES 2(100MG) CAPSULES AM AND PM, AND TAKES 1 (100MG) CAPSULE AT 1200 Phenytoin Sodium 100 Mg Cap, 100 MG PO DAILY @ 1200, (Reported) TAKES 2(100MG) CAPSULES AM AND PM, AND TAKES 1 (100MG) CAPSULE AT 1200 Polyethylene Glycol 119 Gm Btl, 0 PO DAILY, (Reported) 17 GM Spironolactone 25 Mg Tablet, 25 MG PO BID, (Reported) Review of Systems Constitutional: see HPI EENTM: No Symptoms Reported Respiratory: No Symptoms Reported Cardiovascular: See HPI, Chest Pain, Edema, Denies Irregular Heart Rate, Denies Lightheadedness Gastrointestinal: No Symptoms Reported Genitourinary: No Symptoms Reported Skin: no symptoms reported Psychiatric/Neurological: No Symptoms Reported Endocrine: No Symptoms Reported Hematologic/Lymphatic: No Symptoms Reported Past Nvalkmi-Nwoitm-Msjlzh Hx Patient Social History Recent Hopitalizations: Yes (BIPASS, PACER, BROKEN ANKLE AND ARM) Immunizations Up To Date Date of Pneumonia Vaccine: Sep 22, 2012 Date of Influenza Vaccine: Aug 09, 2013 Surgeries HX Surgeries: Yes (LEFT ANKLE, HIATAL HERNIA, SEBACEOUS CYST/BACK, EGD) Surgeries: Abdominal, Cardiac, CABG, Coronary Stent, Defibrillator, Orthopedic , Pacemaker Respiratory Hx Respiratory Disorders: Yes Respiratory Disorders: Chronic Bronchitis, COPD, Emphysema Cardiovascular Hx Cardiac Disorders: Yes (CABG X 3, STENTS X 2 , PACEMAKER /DEFIB, SEVERE PULMONARY HTN, CHF) Cardiac Disorders: Atrial Fibrillation, Chronic Edema/Swelling, Coronary Artery Disease, Heart Attack, High Cholesterol, Hypertension, Peripheral Vascular Neurological Hx Neurological Disorders: No Neurological Disorders: Seizure Disorder Reproductive System Hx Reproductive Disorders: No Sexually Transmitted Disease: No HIV/AIDS: No Genitourinary Hx Genitourinary Disorders: No Gastrointestinal Hx Gastrointestinal Disorders: Yes Gastrointestinal Disorders: Gastroesophageal Reflux, Liver Disease/Jaundice, Hiatal Hernia, Ulcer Musculoskeletal Hx Musculoskeletal Disorders: Yes (LEFT ANKLE SURGERY) Musculoskeletal Disorders: Arthritis Endocrine Hx Endocrine Disorders: Yes Endocrine Disorders: Hypothyroidsim, Diabetes, Non-Insulin dep HEENT HX ENT Disorders: Yes (glasses) Loss of Vision: Denies Hearing Impairment: Denies Cancer Hx Cancer: No Psychosocial Hx Psychiatric Problems: No Integumentary HX Skin/Integumentary Disorder: No Blood Transfusions Hx Blood Disorders: No Adverse Reaction to a Blood Tr: No Family Medical History Family Medial History: Chest pain 19 FATHER Family history: Arthritis 19 FATHER Family history: Cardiovascular disease 19 FATHER G8 BROTHER Myocardial infarction 19 FATHER Physical Exam Vital Signs Vital Sign - Last 12Hours 02/19/17 12:20 Temp 98.6 Pulse 132 Resp 15 B/P (MAP) 98/47 Pulse Ox 97 O2 Delivery Room Air Capillary Refill : General Appearance: No Apparent Distress, WD/WN, Other (he appears much older than stated age though in no distress.) HEENT: PERRL/EOMI, TMs Normal Neck: Full Range of Motion, Normal Inspection Respiratory: No Accessory Muscle Use, No Respiratory Distress Cardiovascular: Normal Peripheral Pulses, Irregularly Irregular Gastrointestinal: Normal Bowel Sounds, Non Tender, Soft Extremity: Normal Capillary Refill, Pedal Edema (2+ bilateral lower extremities ) Neurologic/Psychiatric: Alert, Oriented x3, No Motor/Sensory Deficits Skin: Normal Color, Warm/Dry Progress/Results/Core Measures Results/Orders Lab Results Laboratory Tests Test 02/19/17 12:20 02/19/17 14:30 Range/Units White Blood Count 10.2 4.3-11.0 10^3/uL Red Blood Count 4.75 4.35-5.85 10^6/uL Hemoglobin 15.1 13.3-17.7 G/DL Hematocrit 44 40-54 % Mean Corpuscular Volume 92 80-99 FL Mean Corpuscular Hemoglobin 32 25-34 PG Mean Corpuscular Hemoglobin Concent 34 32-36 G/DL Red Cell Distribution Width 13.9 10.0-14.5 % Platelet Count 160 130-400 10^3/uL Mean Platelet Volume 10.7 H 7.4-10.4 FL Neutrophils (%) (Auto) 64 42-75 % Lymphocytes (%) (Auto) 21 12-44 % Monocytes (%) (Auto) 13 H 0-12 % Eosinophils (%) (Auto) 2 0-10 % Basophils (%) (Auto) 0 0-10 % Neutrophils # (Auto) 6.6 1.8-7.8 X 10^3 Lymphocytes # (Auto) 2.2 1.0-4.0 X 10^3 Monocytes # (Auto) 1.3 H 0.0-1.0 X 10^3 Eosinophils # (Auto) 0.2 0.0-0.3 10^3/uL Basophils # (Auto) 0.0 0.0-0.1 10^3/uL Prothrombin Time 17.8 H 12.2-14.7 SEC INR Comment 1.5 H 0.8-1.4 Activated Partial Thromboplast Time 46 H 24-35 SEC Sodium Level 138 135-145 MMOL/L Potassium Level 4.4 3.6-5.0 MMOL/L Chloride Level 102 98-107 MMOL/L Carbon Dioxide Level 28 21-32 MMOL/L Anion Gap 8 5-14 MMOL/L Blood Urea Nitrogen 63 H 7-18 MG/DL Creatinine 1.48 H 0.60-1.30 MG/DL Estimat Glomerular Filtration Rate 50 BUN/Creatinine Ratio 43 Glucose Level 156 H 70-105 MG/DL Calcium Level 8.9 8.5-10.1 MG/DL Magnesium Level 2.4 1.8-2.4 MG/DL Total Bilirubin 1.0 0.1-1.0 MG/DL Aspartate Amino Transf (AST/SGOT) 23 5-34 U/L Alanine Aminotransferase (ALT/SGPT) 38 0-55 U/L Alkaline Phosphatase 114 40-136 U/L Myoglobin 55.0 10.0-92.0 NG/ML Troponin I < 0.30 < 0.30 <0.30 NG/ML B-Type Natriuretic Peptide 426.5 H <100.0 PG/ML Total Protein 6.5 6.4-8.2 G/DL Albumin 3.7 3.2-4.5 G/DL My Orders Orders - EDGAR GUDINO APRN Cbc With Automated Diff (02/19/17 12:25) Magnesium (02/19/17 12:25) Chest 1 View, Ap/Pa Only (02/19/17 12:25) Ekg Tracing (02/19/17 12:25) Cardiac Profile 1 (02/19/17 12:25) Comprehensive Metabolic Panel (02/19/17 12:25) Myoglobin Serum (02/19/17 12:25) Protime With Inr (02/19/17 12:25) Partial Thromboplastin Time (02/19/17 12:25) O2 (02/19/17 12:25) Monitor-Rhythm Ecg Trace Only (02/19/17 12:25) Lipid Panel (02/20/17 06:00) Aspirin Chewable Tablet (Baby Aspirin Ch (02/19/17 12:30) Saline Lock/Iv-Start (02/19/17 12:25) BNP (02/19/17 12:37) Metoprolol Succinate (Xl) Tab (Toprol Xl (02/19/17 13:15) Ns Iv 500 Ml (Sodium Chloride 0.9%) (02/19/17 14:00) Troponin I (02/19/17 14:08) Medications Given in ED Current Medications Medications Dose Ordered Sig/Ericka Route Start Time Stop Time Status Last Admin Dose Admin Aspirin 324 mg ONCE ONCE PO 02/19/17 12:30 02/19/17 12:31 DC 02/19/17 12:39 324 MG Metoprolol Succinate 25 mg ONCE ONCE PO 02/19/17 13:15 02/19/17 13:16 DC 02/19/17 13:50 25 MG Vital Signs/I&O Vital Sign - Last 12Hours 02/19/17 02/19/17 12:20 12:20 Temp 98.6 Pulse 132 Resp 15 B/P (MAP) 98/47 Pulse Ox 97 O2 Delivery Room Air Departure Communication Progress Notes 1308-I discussed the case with Dr. Marte. Given that the patient is symptom- free currently with no EKG changes and negative troponin he would recommend a repeat troponin in a few hours and if still negative then discharged home. Patient should follow-up with him tomorrow in the clinic. He would also recommend Toprol-XL 25 mg by mouth 1 now. In reviewing his old records he had an echocardiogram in number 2016 which showed a dilated cardiomyopathy with 25- 30 percent ejection fraction. Patient states that his blood pressure always runs low though he is currently about 88/50. Given the slightly bumped BUN and creatinine and his use of multiple diuretics I will give 500 mL of saline IV as he may be a bit intravascularly dry. 1359-heart rate is 80s. Blood pressure is 95 systolic. Patient states that his blood pressure normally runs the top number in the 90s and "sometimes even lower" he states. He is mentating normally and states that he feels fine and continues to be without chest pain. Impression Impression: Primary Impression: Chest pain Qualified Codes: R07.9 - Chest pain, unspecified Disposition: 01 HOME, SELF-CARE Condition: Stable Decision to Admit Reason: Admit from ER (General) Decision to Admit/Date: Feb 19, 2017 Time/Decision to Admit Time: 12:51 Departure-Patient Inst. Decision time for Depature: 13:07 Referrals: BRENDAN UGARTE DO (PCP/Family) Primary Care Physician Patient Instructions: Chest Pain (DC) Add. Discharge Instructions: 1. Follow-up with Dr. Marte tomorrow. Call his office today to make an appointment to be seen tomorrow morning 2. Return to ER for any recurrent chest pain between now and then or any other concerns Copy Copies To 1: ANDRE SUAREZ MD FACP FACC CCDS EDGAR GUDINO APRN Feb 19, 2017 12:26
[2017-02-19] MEDS ORDERED: ASPIRIN 81 MG CHEW (CHILDREN'S ASA) PO ONE (12:30)
[2017-02-19 12:33] LABS: BASOPHILS % (AUTO) 0 % (0-10); EOSINOPHILS # (AUTO) 0.2 10^3/uL (0.0-0.3); EOSINOPHILS % (AUTO) 2 % (0-10); LYMPHOCYTES # (AUTO) 2.2 X 10^3 (1.0-4.0); LYMPHOCYTES % (AUTO) 21 % (12-44); MEAN CORPUSCULAR HEMOGLOBIN 32 PG (25-34); MEAN CORPUSCULAR HGB CONC 34 G/DL (32-36); MEAN CORPUSCULAR VOLUME 92 FL (80-99); MEAN PLATELET VOLUME 10.7 FL (7.4-10.4); MONOCYTES # (AUTO) 1.3 X 10^3 (0.0-1.0); MONOCYTES % (AUTO) 13 % (0-12); NEUTROPHILS # (AUTO) 6.6 X 10^3 (1.8-7.8); NEUTROPHILS % (AUTO) 64 % (42-75); PLATELET COUNT 160 10^3/uL (130-400); RED BLOOD COUNT 4.75 10^6/uL (4.35-5.85); RED CELL DISTRIBUTION WIDTH 13.9 % (10.0-14.5); WHITE BLOOD COUNT 10.2 10^3/uL (4.3-11.0)
[2017-02-19 12:42] LABS: INR 1.5 (0.8-1.4); PROTHROMBIN TIME PATIENT 17.8 SEC (12.2-14.7)
[2017-02-19 12:50] LABS: ALANINE AMINOTRANSFERASE 38 U/L (0-55); ALBUMIN 3.7 G/DL (3.2-4.5); ANION GAP 8 MMOL/L (5-14); ASPARTATE AMINO TRANSFERASE 23 U/L (5-34); BLOOD UREA NITROGEN 63 MG/DL (7-18); BUN/CREATININE RATIO 43; CALCIUM 8.9 MG/DL (8.5-10.1); CARBON DIOXIDE 28 MMOL/L (21-32); CHLORIDE 102 MMOL/L (98-107); CREATININE SERUM 1.48 MG/DL (0.60-1.30); GFR ESTIMATED 50; GLUCOSE 156 MG/DL (70-105); MAGNESIUM 2.4 MG/DL (1.8-2.4); POTASSIUM 4.4 MMOL/L (3.6-5.0); SODIUM 138 MMOL/L (135-145); TOTAL PROTEIN 6.5 G/DL (6.4-8.2)
--- NOTE | 2017-02-19 13:05 | Diagnostic Imaging Report ---
INDICATION: Shortness of breath since this morning FINDINGS: Frontal view of the chest demonstrates stable cardiomegaly, cardiac defibrillator and coronary artery bypass graft changes. The lungs are clear. The vascularity is normal. There are no pleural effusions. There's been no change since December 30. IMPRESSION: Stable chest. Dictated by: Dictated on workstation # [id number]
[2017-02-19] MEDS ORDERED: NS IV 500 ML 500 ML IV SCH (14:00)
[2017-02-19 15:10] VITALS: BP 86/50
--- OUTSIDE RECORDS SUMMARY | 2017-02-23 04:59 | XMS REPORT | Continuity of Care Document ---
Author Author [facility] Organization [facility] Address Unknown Phone Unavailable Allergies Active Description Code Type Severity Reaction Onset Reported/Identified Relationship to Patient Clinical Status Yes No Known Drug Allergies [id number] Drug Allergy Unknown N/ A 09/06/2007 Medications Problems Date Dx Coded Attending Type Code Diagnosis Diagnosed By 06/18/2010 Ot 250.00 06/18/2010 Ot 272.4 06/18/2010 Ot 401.9 06/18/2010 Ot 414.01 06/18/2010 Ot 427.31 06/18/2010 Ot 530.81 06/18/2010 Ot 786.50 02/26/2011 Ot 272.4 02/26/2011 Ot 345.90 02/26/2011 Ot 401.9 02/26/2011 Ot 413.9 02/26/2011 Ot 414.01 02/26/2011 Ot 414.8 02/26/2011 Ot 416.8 02/26/2011 Ot 786.59 02/26/2011 Ot V45.02 02/26/2011 Ot V45.81 07/09/2011 Ot 530.3 07/09/2011 Ot 530.81 07/09/2011 Ot 553.3 01/09/2012 Ot 414.00 CORON ATHEROSCLER NOS TYPE VESSEL, NATIV 01/09/2012 Ot 414.8 CHR ISCHEMIC HRT DIS NEC 01/09/2012 Ot 780.79 OTH MALAISE FATIGUE 01/09/2012 Ot 790.5 ABN SERUM ENZY LEVEL NEC 01/09/2012 Ot V53.32 FITTING ADJUST AUTOMAT IMPLANT CARDIAC 01/09/2012 Ot V58.63 LONG-TERM(CURRENT)USE OF ANTIPLATELET/AN 01/09/2012 Ot V58.66 LONG-TERM (CURRENT) USE OF ASPIRIN 01/09/2012 Ot V58.69 OTH MED,LT,CURRENT USE 07/21/2012 Ot 250.00 DIAB BETTY WO COMPL, TYPE II OR UNSPEC TY 07/21/2012 Ot 272.4 HYPERLIPIDEMIA NEC/NOS 07/21/2012 Ot 345.90 EPILEPSY UNSPEC W/O MENTION INTRACTABLE 07/21/2012 Ot 414.8 CHR ISCHEMIC HRT DIS NEC 07/21/2012 Ot 416.8 CHR PULMON HEART DIS NEC 07/21/2012 Ot 428.1 LEFT HEART FAILURE 07/21/2012 Ot 530.81 ESOPHAGEAL REFLUX 07/21/2012 Ot V45.81 AORTOCORONARY BYPASS 03/24/2013 Ot 250.00 DIAB BETTY WO COMPL, TYPE II OR UNSPEC TY 03/24/2013 Ot 272.4 HYPERLIPIDEMIA NEC/NOS 03/24/2013 Ot 345.90 EPILEPSY UNSPEC W/O MENTION INTRACTABLE 03/24/2013 Ot 414.01 CORONARY ATHEROSCLEROSIS OF [place] CORON 03/24/2013 Ot 414.2 CHRONIC TOTAL OCCLUSION OF CORONARY DAINA 03/24/2013 Ot 416.8 CHR PULMON HEART DIS NEC 03/24/2013 Ot 427.31 ATRIAL FIBRILLATION 03/24/2013 Ot 433.10 CAROTID ARTERY OCCLUSION W O CEREBRAL IN 03/24/2013 Ot 433.30 MULT BILTRAL ARTERY OCCLUSION WO CEREBRA 03/24/2013 Ot 530.81 ESOPHAGEAL REFLUX 03/24/2013 Ot 782.4 JAUNDICE NOS 03/24/2013 Ot 786.05 SHORTNESS OF BREATH 03/24/2013 Ot V45.02 AUTO IMPLANTABLE CARDIAC DEFIBRILLATOR I 03/24/2013 Ot V45.81 AORTOCORONARY BYPASS 03/24/2013 Ot V45.82 PERCUTANEOUS TRANSLUM CORON ANGIOPLASTY 03/24/2013 Ot V58.61 ANTICOAGULANTS,LT,CURRENT USE 03/24/2013 Ot V58.66 LONG-TERM (CURRENT) USE OF ASPIRIN 03/24/2013 Ot V58.69 OTH MED,LT,CURRENT USE 06/04/2013 ADDY SPARROW FACC, ANDRE FACP CCDS Ot V45.82 PERCUTANEOUS TRANSLUM CORON ANGIOPLASTY 06/04/2013 ADDY SPARROW FACC, ANDRE FACP CCDS Ot V57.89 REHABILITATION PROC NEC 08/24/2013 ADDY SPARROW FACC, ANDRE FACP CCDS Ot 250.00 DIAB BETTY WO COMPL, TYPE II OR UNSPEC TY 08/24/2013 ADDY SPARROW FACC, ANDRE FACP CCDS Ot 272.4 HYPERLIPIDEMIA NEC/NOS 08/24/2013 ADDY SPARROW FACC, ANDRE FACP CCDS Ot 345.90 EPILEPSY UNSPEC W/O MENTION INTRACTABLE 08/24/2013 ADDY SPARROW FACC, ANDRE FACP CCDS Ot 414.01 CORONARY ATHEROSCLEROSIS OF [place] CORON 08/24/2013 ANDRE DALY MD, FACC FACP CCDS Ot 414.2 CHRONIC TOTAL OCCLUSION OF CORONARY DAINA 08/24/2013 ANDRE DALY MD, FACC FACP CCDS Ot 416.8 CHR PULMON HEART DIS NEC 08/24/2013 ADDY SPARROW FACC ALI FACP CCDS Ot 427.31 ATRIAL FIBRILLATION 08/24/2013 ADDY SPARROW FACC ALI FACP CCDS Ot 530.81 ESOPHAGEAL REFLUX 08/24/2013 ANDRE DALY MD, FACC FACP CCDS Ot 782.4 JAUNDICE NOS 08/24/2013 ADDY SPARROW FACC ALI FACP CCDS Ot 786.59 CHEST PAIN NEC 08/24/2013 ANDRE DALY MD, FACC FACP CCDS Ot V45.01 CARDIAC PACEMAKER IN SITU 08/24/2013 ANDRE DALY MD, FACC FACP CCDS Ot V45.81 AORTOCORONARY BYPASS 08/24/2013 ANDRE DALY MD, FACC FACP CCDS Ot V45.82 PERCUTANEOUS TRANSLUM CORON ANGIOPLASTY 08/24/2013 ANDRE DALY MD, FACC FACP CCDS Ot V58.61 ANTICOAGULANTS,LT,CURRENT USE 08/24/2013 ANDRE DALY MD, FACC FACP CCDS Ot V58.63 LONG-TERM(CURRENT)USE OF ANTIPLATELET/AN 08/24/2013 ANDRE DALY MD, FACC FACP CCDS Ot V58.66 LONG-TERM (CURRENT) USE OF ASPIRIN 08/24/2013 ANDRE DALY MD, FACC FACP CCDS Ot V58.69 OTH MED,LT,CURRENT USE 05/21/2014 ANDRE DALY MD, FACC FACP CCDS Ot 250.00 DIAB BETTY WO COMPL, TYPE II OR UNSPEC TY 05/21/2014 ADDY SPARROW FACC ALI FACP CCDS Ot 272.0 PURE HYPERCHOLESTEROLEM 05/21/2014 ADDY SPARROW FACC ALI FACP CCDS Ot 345.90 EPILEPSY UNSPEC W/O MENTION INTRACTABLE 05/21/2014 ANDRE DALY MD, FACC FACP CCDS Ot 401.9 HYPERTENSION NOS 05/21/2014 ADDY SPARROW FACC ALI FACP CCDS Ot 416.8 CHR PULMON HEART DIS NEC 05/21/2014 ANDRE DALY MD, FACC FACP CCDS Ot 427.31 ATRIAL FIBRILLATION 05/21/2014 ADDY MD FACC, ALI FACP CCDS Ot 428.22 CHRONIC SYSTOLIC HRT FAILURE 05/21/2014 ADDY CACERESC, ALI FACP CCDS Ot 433.30 MULT BILTRAL ARTERY OCCLUSION WO CEREBRA 05/21/2014 ADDY SPARROW FACC, ALI FACP CCDS Ot 530.81 ESOPHAGEAL REFLUX 05/21/2014 ADDY SPARROW FACC, ANDRE FACP CCDS Ot 782.4 JAUNDICE NOS 05/21/2014 ADDY SPARROW FACC, ANDRE FACP CCDS Ot 996.04 MECHANICAL COMP AUTO IMPLANT CARDIAC DEF 05/21/2014 ADDY SPARROW FACC, ALI FACP CCDS Ot V45.01 CARDIAC PACEMAKER IN SITU 05/21/2014 ADDY SPARROW FACC, ALI FACP CCDS Ot V45.02 AUTO IMPLANTABLE CARDIAC DEFIBRILLATOR I 02/26/2015 KATHLEEN AMAURI Borrego Ot 250.00 DIAB BETTY WO COMPL, TYPE II OR UNSPEC TY 02/26/2015 KATHLEEN AMAURI K Ot 272.0 PURE HYPERCHOLESTEROLEM 02/26/2015 LENA WANG DOA K Ot 345.90 EPILEPSY UNSPEC W/O MENTION INTRACTABLE 02/26/2015 KATHLEEN AMAURI K Ot 401.9 HYPERTENSION NOS 02/26/2015 KATHLEEN AMAURI K Ot 414.01 CORONARY ATHEROSCLEROSIS OF [place] CORON 02/26/2015 LENA WANG DOA K Ot 427.31 ATRIAL FIBRILLATION 02/26/2015 LENA WANG DOA K Ot 490 BRONCHITIS NOS 02/26/2015 KATHLEEN AMAURI K Ot 530.81 ESOPHAGEAL REFLUX 02/26/2015 KATHLEEN CATALAN AMAURI K Ot 786.05 SHORTNESS OF BREATH 04/13/2015 AMX THOMSON MD Ot 553.1 UMBILICAL HERNIA 04/13/2015 MAX THOMSON MD Ot 789.59 OTHER ASCITES 04/13/2015 MAX THOMSON MD, Ot V58.69 OT MED,LT,CURRENT USE 04/14/2015 MAX THOMSON MD, Ot 553.1 04/14/2015 MAX THOMSON MD, Ot V72.63 04/14/2015 MAX THOMSON MD, Ot V74.8 04/29/2015 ADDY SPARROW FACC, ANDRE CACERESP CCDS Ot 272.4 04/29/2015 ADDY SPARROW FACC, ANDRE FACP CCDS Ot 345.90 04/29/2015 ADDY SPARROW FAC, ALI FACP CCDS Ot 414.00 04/29/2015 ADDY SPARROW FAC, ALI FACP CCDS Ot 427.31 04/29/2015 ADDY SPARROW FAC, ALI FACP CCDS Ot 429.9 04/29/2015 ADDY SPARROW FAC, ALI FACP CCDS Ot 447.9 04/29/2015 ADDY SPARROW FAC, ALI FACP CCDS Ot 782.4 04/29/2015 ADDY SPARROW [facility], ALI FACP CCDS Ot V58.61 05/11/2015 TORITO CATALAN, BRENDAN Harding Ot 511.9 05/12/2015 ALIX SPARROW, MAX Ot 553.1 05/12/2015 ALIX SPARROW, MAX Ot V72.63 05/12/2015 ALXI SPARROW, MAX Ot V74.8 06/07/2015 ALIX SPARROW, MAX Ot 553.1 06/07/2015 ALIX SPARROW, MAX Ot V72.63 06/07/2015 ALIX SPARROW, MAX Ot V74.8 06/07/2015 BRENDAN UGARTE DO Ot 511.9 2015 SHAISTA SPARROW, DENISE Condon Ot V58.69 06/30/2015 SHAISTA SPARROW, DENISE Condon Ot V58.69 07/14/2015 SHAISTA SPARROW, DENISE Condon Ot V58.69 10/03/2015 Ot 780.2 10/03/2015 Ot 433.30 10/03/2015 Ot 790.5 10/03/2015 Ot 397.0 10/03/2015 Ot 414.8 10/03/2015 Ot 416.8 10/03/2015 Ot 424.0 10/03/2015 Ot 429.3 10/03/2015 Ot 250.00 10/03/2015 Ot 272.4 10/03/2015 Ot 414.00 10/03/2015 Ot 416.8 10/03/2015 Ot 433.10 10/03/2015 Ot V72.63 10/03/2015 Ot V72.81 10/03/2015 Ot 397.0 10/03/2015 Ot 416.8 10/03/2015 Ot 424.0 10/03/2015 Ot 425.4 10/03/2015 Ot 429.3 10/03/2015 DEBORA GASCA Ot 433.10 10/03/2015 FABIENNEDEBORA CERVANTES L NURSING PROJECT COORDINATOR Ot V02.54 10/03/2015 BRENDAN UGARTE DO Ot 478.19 10/03/2015 TORITO CATALAN, BRENDAN Harding Ot 786.09 10/03/2015 BRENDAN UGARTE DO Ot 786.2 10/03/2015 ADDY SPARROW FACC, ALI FACP CCDS Ot 272.4 10/03/2015 ADDY SPARROW FACC, ALI FACP CCDS Ot 345.90 10/03/2015 ADDY SPARROW FACC, ALI FACP CCDS Ot 414.00 10/03/2015 ADDY SPARROW FACC, ALI FACP CCDS Ot 427.31 10/03/2015 ADDY SPARROW FACC, ALI FACP CCDS Ot 429.9 10/03/2015 ADDY SPARROW FACC, ALI FACP CCDS Ot 447.9 10/03/2015 ADDY SPARROW FACC, ALI FACP CCDS Ot 782.4 10/03/2015 ADDY SPARROW FACC, ALI FACP CCDS Ot V58.61 10/03/2015 ALIX SPARROW, TAKAAKI Ot 553.1 10/03/2015 ALIX SPARROW, TAKAAKI Ot V72.63 10/03/2015 ALIX SPARROW, TAKAAKI Ot V74.8 10/03/2015 TORITO CATALAN BRENDAN Harding Ot 511.9 10/03/2015 SHAISTA SPARROW, DENISE Condon Ot V58.69 10/30/2015 DEBORA GASCA L NURSING PROJECT COORDINATOR Ot E78.5 10/30/2015 BAIMA, DEBORA L NURSING PROJECT COORDINATOR Ot I34.0 10/30/2015 BAIMA, DEBORA L NURSING PROJECT COORDINATOR Ot I48.91 10/30/2015 BAIMA, DEBORA L NURSING PROJECT COORDINATOR Ot I77.9 10/30/2015 BAIMA, DEBORA L NURSING PROJECT COORDINATOR Ot R03.0 10/30/2015 BAIMA, DEBORA L NURSING PROJECT COORDINATOR Ot R94.30 10/30/2015 BAIMA, DEBORA L NURSING PROJECT COORDINATOR Ot Z79.01 11/13/2015 BAIMA, DEBORA L NURSING PROJECT COORDINATOR Ot E78.5 11/13/2015 BAIMA, DEBORA L NURSING PROJECT COORDINATOR Ot I34.0 11/13/2015 BAIMA, DEBORA L NURSING PROJECT COORDINATOR Ot I48.91 11/13/2015 BAIMA, DEBORA L NURSING PROJECT COORDINATOR Ot I77.9 11/13/2015 DEBORA GASCA NURSING PROJECT COORDINATOR Ot R03.0 11/13/2015 DEBORA GASCA NURSING PROJECT COORDINATOR Ot R94.30 11/13/2015 DEBORA GASCA NURSING PROJECT COORDINATOR Ot Z79.01 10/16/2016 Ot E78.5 HYPERLIPIDEMIA, UNSPECIFIED 10/16/2016 Ot I25.5 ISCHEMIC CARDIOMYOPATHY 10/16/2016 Ot I48.0 PAROXYSMAL ATRIAL FIBRILLATION 10/16/2016 Ot Z78.9 OTHER SPECIFIED HEALTH STATUS 10/16/2016 Ot Z79.01 MCC (CURRENT) USE OF ANTICOAGULANT 11/05/2016 Ot E78.5 HYPERLIPIDEMIA, UNSPECIFIED 11/05/2016 Ot I25.5 ISCHEMIC CARDIOMYOPATHY 11/05/2016 Ot I48.0 PAROXYSMAL ATRIAL FIBRILLATION 11/05/2016 Ot Z78.9 OTHER SPECIFIED HEALTH STATUS 11/05/2016 Ot Z79.01 MCC (CURRENT) USE OF ANTICOAGULANT 11/15/2016 Ot E78.5 HYPERLIPIDEMIA, UNSPECIFIED 11/15/2016 Ot I25.5 ISCHEMIC CARDIOMYOPATHY 11/15/2016 Ot I48.0 PAROXYSMAL ATRIAL FIBRILLATION 11/15/2016 Ot Z78.9 OTHER SPECIFIED HEALTH STATUS 11/15/2016 Ot Z79.01 MCC (CURRENT) USE OF ANTICOAGULANT 12/06/2016 TOÑITO SAN DO Ot E66.9 OBESITY, UNSPECIFIED 12/06/2016 TOÑITO SAN DO Ot J98.4 OTHER DISORDERS OF LUNG 12/10/2016 TOÑITO SAN DO Ot E66.9 OBESITY, UNSPECIFIED 12/10/2016 TOÑITO SAN DO Ot J98.4 OTHER DISORDERS OF LUNG 12/11/2016 TOÑITO SAN DO Ot E66.9 OBESITY, UNSPECIFIED 12/11/2016 TOÑITO SAN DO Ot J43.9 EMPHYSEMA, UNSPECIFIED 12/22/2016 SAUL SPARROW, ITZ Estevez Ot E11.9 TYPE 2 DIABETES MELLITUS WITHOUT COMPLIC 12/22/2016 ITZ HUGHES MD Ot R06.02 SHORTNESS OF BREATH 12/22/2016 ITZ HUGHES MD Ot R60.0 LOCALIZED EDEMA 12/22/2016 ITZ HUGHES MD Ot Z79.82 MCC (CURRENT) USE OF ASPIRIN 12/22/2016 IZT HUGHES MD, Ot 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 12/22/2016 ITZ HUGHES MD Ot Z95.1 PRESENCE OF AORTOCORONARY BYPASS GRAFT 12/22/2016 ITZ HUGHES MD Ot Z95.5 PRESENCE OF CORONARY ANGIOPLASTY IMPLANT 12/22/2016 ITZ HUGHES MD Ot Z95.810 PRESENCE OF AUTOMATIC (IMPLANTABLE) CARD 12/24/2016 ITZ HUGHES MD Ot E11.9 TYPE 2 DIABETES MELLITUS WITHOUT COMPLIC 12/24/2016 ITZ HUGHES MD Ot R06.02 SHORTNESS OF BREATH 12/24/2016 ITZ HUGHES MD Ot R60.0 LOCALIZED EDEMA 12/24/2016 ITZ HUGHES MD Ot Z79.82 MCC (CURRENT) USE OF ASPIRIN 12/24/2016 ITZ HUGHES MD Ot 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 12/24/2016 IZT HUGHES MD Ot Z95.1 PRESENCE OF AORTOCORONARY BYPASS GRAFT 12/24/2016 ITZ HUGHES MD Ot Z95.5 PRESENCE OF CORONARY ANGIOPLASTY IMPLANT 12/24/2016 ITZ HUGHES MD Ot Z95.810 PRESENCE OF AUTOMATIC (IMPLANTABLE) CARD 12/30/2016 Ot 790.5 ABN SERUM ENZY LEVEL NEC 12/30/2016 Ot 397.0 TRICUSPID VALVE DISEASE 12/30/2016 Ot 414.8 CHR ISCHEMIC HRT DIS NEC 12/30/2016 Ot 416.8 CHR PULMON HEART DIS NEC 12/30/2016 Ot 424.0 MITRAL VALVE DISORDER 12/30/2016 Ot 429.3 CARDIOMEGALY 12/30/2016 Ot 250.00 DIAB BETTY WO COMPL, TYPE II OR UNSPEC TY 12/30/2016 Ot 272.4 HYPERLIPIDEMIA NEC/NOS 12/30/2016 Ot 414.00 CORON ATHEROSCLER NOS TYPE VESSEL, NATIV 12/30/2016 Ot 416.8 CHR PULMON HEART DIS NEC 12/30/2016 Ot 433.10 CAROTID ARTERY OCCLUSION W O CEREBRAL IN 12/30/2016 Ot V72.63 PRE-PROCEDURAL LABORATORY EXAMINATION 12/30/2016 Ot V72.81 [id number] CARDIOVASCULAR 12/30/2016 Ot 397.0 TRICUSPID VALVE DISEASE 12/30/2016 Ot 416.8 CHR PULMON HEART DIS NEC 12/30/2016 Ot 424.0 MITRAL VALVE DISORDER 12/30/2016 Ot 425.4 PRIM CARDIOMYOPATHY NEC 12/30/2016 Ot 429.3 CARDIOMEGALY 12/30/2016 DEBORA GASCA NURSING PROJECT COORDINATOR Ot 433.10 CAROTID ARTERY OCCLUSION W O CEREBRAL IN 12/30/2016 DEBORA GASCA NURSING PROJECT COORDINATOR Ot V02.54 CARRIER, SUSP PEREZ METHICILLIN RESISTN S 12/30/2016 PHILLYNEDAORIANA BRENDAN CATALAN Ot 478.19 OTHER DISEASE OF NASAL CAVITY AND SINUSE 12/30/2016 BRENDAN UGARTE DO Ot 786.09 RESPIRATORY ABNORM NEC 12/30/2016 BRENDAN UGARTE DO Ot 786.2 COUGH 12/30/2016 ADDY SPARROW FACC, ALI FACP CCDS Ot 272.4 HYPERLIPIDEMIA NEC/NOS 12/30/2016 ADDY SPARROW FACC, ALI FACP CCDS Ot 345.90 EPILEPSY UNSPEC W/O MENTION INTRACTABLE 12/30/2016 ADDY SPARROW FACC, ALI FACP CCDS Ot 414.00 CORON ATHEROSCLER NOS TYPE VESSEL, NATIV 12/30/2016 ADDY SPARROW FACC, ALI FACP CCDS Ot 427.31 ATRIAL FIBRILLATION 12/30/2016 ADDY SPARROW FACC, ALI FACP CCDS Ot 429.9 HEART DISEASE NOS 12/30/2016 ADDY SPARROW FACC, ALI FACP CCDS Ot 447.9 ARTERIAL DISEASE NOS 12/30/2016 ADDY SPARROW FACC, ALI FACP CCDS Ot 782.4 JAUNDICE NOS 12/30/2016 ADDY SPARROW FACC, ALI FACP CCDS Ot V58.61 ANTICOAGULANTS,LT,CURRENT USE 12/30/2016 MAX THOMSON MD Ot 553.1 UMBILICAL HERNIA 12/30/2016 MAX THOMSON MD Ot V72.63 PRE-PROCEDURAL LABORATORY EXAMINATION 12/30/2016 MAX THOMSON MD Ot V74.8 SCREEN-BACTERIAL DIS NEC 12/30/2016 BRENDAN UGARTE DO Ot 511.9 PLEURAL EFFUSION NOS 12/30/2016 SHAISTA SPARROW, DENISE Condon Ot V58.69 OTH MED,LT,CURRENT USE 12/30/2016 DEBORA GASCA NURSING PROJECT COORDINATOR Ot E78.5 HYPERLIPIDEMIA, UNSPECIFIED 12/30/2016 DEBORA GASCA NURSING PROJECT COORDINATOR Ot I34.0 NONRHEUMATIC MITRAL (VALVE) INSUFFICIENC 12/30/2016 DEBORA GASCA Ot I48.91 UNSPECIFIED ATRIAL FIBRILLATION 12/30/2016 DEBORA GASCA Ot I77.9 DISORDER OF ARTERIES AND ARTERIOLES, UNS 12/30/2016 DEBORA GASCA Ot R03.0 ELEVATED BLOOD-PRESSURE READING, W/O JASON 12/30/2016 DEBORA GASCA Ot R94.30 ABNORMAL RESULT OF CARDIOVASCULAR FUNCTI 12/30/2016 DEBORA GASCA Ot Z79.01 WINCH TRUCK OPERATOR (CURRENT) USE OF ANTICOAGULANT 12/30/2016 Ot E78.5 HYPERLIPIDEMIA, UNSPECIFIED 12/30/2016 Ot I25.5 ISCHEMIC CARDIOMYOPATHY 12/30/2016 Ot I48.0 PAROXYSMAL ATRIAL FIBRILLATION 12/30/2016 Ot Z78.9 OTHER SPECIFIED HEALTH STATUS 12/30/2016 Ot Z79.01 WINCH TRUCK OPERATOR (CURRENT) USE OF ANTICOAGULANT 12/30/2016 TOÑITO SAN DO Ot E66.9 OBESITY, UNSPECIFIED 12/30/2016 TOÑITO SAN DO Ot J98.4 OTHER DISORDERS OF LUNG 12/30/2016 TOÑITO SAN DO Ot E66.9 OBESITY, UNSPECIFIED 12/30/2016 TOÑITO SAN DO Ot J43.9 EMPHYSEMA, UNSPECIFIED 12/30/2016 TOÑITO SAN DO Ot E66.9 OBESITY, UNSPECIFIED 12/30/2016 TOÑITO SAN DO Ot J98.4 OTHER DISORDERS OF LUNG 12/30/2016 TOÑITO SAN DO Ot R06.00 DYSPNEA, UNSPECIFIED 01/01/2017 GELLENDER DO, BRENDAN A Ot R05 COUGH 01/01/2017 GELLENDER DO, BRENDAN A Ot R06.02 SHORTNESS OF BREATH 01/01/2017 GELLENDER DO, BRENDAN A Ot R60.0 LOCALIZED EDEMA 01/21/2017 TOÑITO SAN DO Ot E66.9 OBESITY, UNSPECIFIED 01/21/2017 TOÑITO SAN DO Ot J98.4 OTHER DISORDERS OF LUNG 01/21/2017 TOÑITO SAN DO Ot R06.00 DYSPNEA, UNSPECIFIED 01/21/2017 TOÑITO SAN DO Ot E66.9 OBESITY, UNSPECIFIED 01/21/2017 TOÑITO SAN DO Ot J98.4 OTHER DISORDERS OF LUNG 01/22/2017 GELLENDER DO, BRENDAN Harding Ot R05 COUGH 01/22/2017 GELLENDER DO, BRENDAN Harding Ot R06.02 SHORTNESS OF BREATH 01/22/2017 GELLENDER DO, BRENDAN Harding Ot R60.0 LOCALIZED EDEMA 01/24/2017 JASWINDER CATALAN TOÑITO M Ot E66.9 OBESITY, UNSPECIFIED 01/24/2017 TOÑITO SAN DO Ot J98.4 OTHER DISORDERS OF LUNG 01/24/2017 JASWINDER DOTOÑITO Ot R06.00 DYSPNEA, UNSPECIFIED 01/31/2017 TOÑITO SAN DO Ot E66.9 OBESITY, UNSPECIFIED 01/31/2017 JASWINDER TOÑITO Ot J98.4 OTHER DISORDERS OF LUNG 01/31/2017 PHILLYLENDER DO, BRENDAN Harding Ot R05 COUGH 01/31/2017 GELLENDER DO, BRENDAN Harding Ot R06.02 SHORTNESS OF BREATH 01/31/2017 GELLENDER DO, BRENDAN Harding Ot R60.0 LOCALIZED EDEMA Procedures Results Test Result Range Complete blood count (CBC) with automated white blood cell (WBC) differential - 12/22/16 12:04 Blood leukocytes automated count (number/volume) 10.3 10*3/ uL 4.3-11.0 Blood erythrocytes automated count (number/volume) 4.69 10*6 /uL 4.35-5.85 Venous blood hemoglobin measurement (mass/volume) 15.3 g/dL 13.3-17.7 Blood hematocrit (volume fraction) 44 % 40-54 Automated erythrocyte mean corpuscular volume 95 [foz_us] 80-99 Automated erythrocyte mean corpuscular hemoglobin (mass per erythrocyte) 33 pg 25-34 Automated erythrocyte mean corpuscular hemoglobin concentration measurement ( mass/volume) 35 g/dL 32-36 Automated erythrocyte distribution width ratio 13.7 % 10.0-14.5 Automated blood platelet count (count/volume) 153 10*3/uL 130-400 Automated blood platelet mean volume measurement 10.4 [foz_ us] 7.4-10.4 Automated blood neutrophils/100 leukocytes 67 % 42-75 Automated blood lymphocytes/100 leukocytes 21 % 12-44 Blood monocytes/100 leukocytes 12 % 0-12 Automated blood eosinophils/100 leukocytes 1 % 0-10 Automated blood basophils/100 leukocytes 0 % 0-10 Blood neutrophils automated count (number/volume) 6.9 10*3 1.8-7.8 Blood lymphocytes automated count (number/volume) 2.1 10*3 1.0-4.0 Blood monocytes automated count (number/volume) 1.2 10*3 0.0-1.0 Automated eosinophil count 0.1 10*3/uL 0.0-0.3 Automated blood basophil count (count/volume) 0.0 10*3/uL 0.0-0.1 PT panel in platelet poor plasma by coagulation assay - 12/22/16 12:04 Prothrombin time (PT) in platelet poor plasma by coagulation assay 18.1 s 12.2-14.7 INR in platelet poor plasma or blood by coagulation assay 1.5 0.8-1.4 Activated partial thromboplastin time (aPTT) in platelet poor plasma bycoagulation assay - 12/22/16 12:04 Activated partial thromboplastin time (aPTT) in platelet poor plasma bycoagulation assay 41 s 24-35 Comprehensive metabolic panel - 12/22/16 12:04 Serum or plasma sodium measurement (moles/volume) 137 mmol/ L 135-145 Serum or plasma potassium measurement (moles/volume) 4.1 mmol/L 3.6-5.0 Serum or plasma chloride measurement (moles/volume) 104 mmol /L 98-107 Carbon dioxide 26 mmol/L 21-32 Serum or plasma anion gap determination (moles/volume) 7 mmol/L 5-14 Serum or plasma urea nitrogen measurement (mass/volume) 26 mg/dL 7-18 Serum or plasma creatinine measurement (mass/volume) 0.87 mg /dL 0.60-1.30 Serum or plasma urea nitrogen/creatinine mass ratio 30 NRG Serum or plasma creatinine measurement with calculation of estimated glomerular filtration rate > NRG Serum or plasma glucose measurement (mass/volume) 114 mg/dL 70-105 Serum or plasma calcium measurement (mass/volume) 7.5 mg/dL 8.5-10.1 Serum or plasma total bilirubin measurement (mass/volume) 0.5 mg/dL 0.1-1.0 Serum or plasma alkaline phosphatase measurement (enzymatic activity/volume) 100 U/L 40-136 Serum or plasma aspartate aminotransferase measurement (enzymatic activity/ volume) 24 U/L 5-34 Serum or plasma alanine aminotransferase measurement (enzymatic activity/volume ) 33 U/L 0-55 Serum or plasma protein measurement (mass/volume) 4.9 g/dL 6.4-8.2 Serum or plasma albumin measurement (mass/volume) 2.9 g/dL 3.2-4.5 Magnesium - 12/22/16 12:04 Magnesium 2.0 mg/dL 1.8-2.4 Serum or plasma lithium measurement (moles/volume) - 12/22/16 12:04 BNP level 661.4 pg/mL <100.0 Serum or plasma troponin i.cardiac measurement (mass/volume) - 12/22/16 12:04 Serum or plasma troponin i.cardiac measurement (mass/volume) < ng/mL <0.30 Myoglobin, serum - 12/22/16 12:04 Myoglobin, serum 71.4 ng/mL 10.0-92.0 Serum or plasma troponin i.cardiac measurement (mass/volume) - 12/22/16 12:04 Serum or plasma troponin i.cardiac measurement (mass/volume) < ng/mL <0.30 Complete urinalysis with reflex to culture - 12/22/16 12:42 Urine color determination YELLOW NRG Urine clarity determination CLEAR NRG Urine pH measurement by test strip 6.5 5 -9 Specific gravity of urine by test strip 1.015 1.016-1.022 Urine protein assay by test strip, semi-quantitative NEGATIVE NEGATIVE Urine glucose detection by automated test strip NEGATIVE NEGATIVE Erythrocytes detection in urine sediment by light microscopy NEGATIVE NEGATIVE Urine ketones detection by automated test strip NEGATIVE NEGATIVE Urine nitrite detection by test strip NEGATIVE NEGATIVE Urine total bilirubin detection by test strip NEGATIVE NEGATIVE Urine urobilinogen measurement by automated test strip (mass/volume) 1 mg/dL NORMAL Urine leukocyte esterase detection by dipstick NEGATIVE NEGATIVE Automated urine sediment erythrocyte count by microscopy (number/high power field) NONE NRG Automated urine sediment leukocyte count by microscopy (number/high power field ) NONE NRG Bacteria detection in urine sediment by light microscopy NEGATIVE NRG Squamous epithelial cells detection in urine sediment by light microscopy RARE NRG Crystals detection in urine sediment by light microscopy NONE NRG Casts detection in urine sediment by light microscopy PRESENT NRG Mucus detection in urine sediment by light microscopy NEGATIVE NRG Complete urinalysis with reflex to culture NO NRG Hyaline casts detection in urine sediment by light microscopy 25-50 NRG Complete blood count (CBC) with automated white blood cell (WBC) differential - 12/30/16 13:10 Blood leukocytes automated count (number/volume) 9.6 10*3/ uL 4.3-11.0 Blood erythrocytes automated count (number/volume) 4.88 10*6 /uL 4.35-5.85 Venous blood hemoglobin measurement (mass/volume) 15.8 g/dL 13.3-17.7 Blood hematocrit (volume fraction) 47 % 40-54 Automated erythrocyte mean corpuscular volume 97 [foz_us] 80-99 Automated erythrocyte mean corpuscular hemoglobin (mass per erythrocyte) 32 pg 25-34 Automated erythrocyte mean corpuscular hemoglobin concentration measurement ( mass/volume) 34 g/dL 32-36 Automated erythrocyte distribution width ratio 13.8 % 10.0-14.5 Automated blood platelet count (count/volume) 156 10*3/uL 130-400 Automated blood platelet mean volume measurement 10.0 [foz_ us] 7.4-10.4 Automated blood neutrophils/100 leukocytes 63 % 42-75 Automated blood lymphocytes/100 leukocytes 19 % 12-44 Blood monocytes/100 leukocytes 16 % 0-12 Automated blood eosinophils/100 leukocytes 2 % 0-10 Automated blood basophils/100 leukocytes 0 % 0-10 Blood neutrophils automated count (number/volume) 6.0 10*3 1.8-7.8 Blood lymphocytes automated count (number/volume) 1.8 10*3 1.0-4.0 Blood monocytes automated count (number/volume) 1.5 10*3 0.0-1.0 Automated eosinophil count 0.2 10*3/uL 0.0-0.3 Automated blood basophil count (count/volume) 0.0 10*3/uL 0.0-0.1 Whole blood basic metabolic panel - 12/30/16 13:10 Serum or plasma sodium measurement (moles/volume) 138 mmol/ L 135-145 Serum or plasma potassium measurement (moles/volume) 5.2 mmol/L 3.6-5.0 Serum or plasma chloride measurement (moles/volume) 102 mmol /L 98-107 Carbon dioxide 29 mmol/L 21-32 Serum or plasma anion gap determination (moles/volume) 7 mmol/L 5-14 Serum or plasma urea nitrogen measurement (mass/volume) 26 mg/dL 7-18 Serum or plasma creatinine measurement (mass/volume) 1.20 mg /dL 0.60-1.30 Serum or plasma urea nitrogen/creatinine mass ratio 22 NRG Serum or plasma creatinine measurement with calculation of estimated glomerular filtration rate > NRG Serum or plasma glucose measurement (mass/volume) 135 mg/dL 70-105 Serum or plasma calcium measurement (mass/volume) 8.2 mg/dL 8.5-10.1 Serum or plasma lithium measurement (moles/volume) - 12/30/16 13:10 BNP level 384.8 pg/mL <100.0 Complete blood count (CBC) with automated white blood cell (WBC) differential - 02/19/17 12:20 Blood leukocytes automated count (number/volume) 10.2 10*3/ uL 4.3-11.0 Blood erythrocytes automated count (number/volume) 4.75 10*6 /uL 4.35-5.85 Venous blood hemoglobin measurement (mass/volume) 15.1 g/dL 13.3-17.7 Blood hematocrit (volume fraction) 44 % 40-54 Automated erythrocyte mean corpuscular volume 92 [foz_us] 80-99 Automated erythrocyte mean corpuscular hemoglobin (mass per erythrocyte) 32 pg 25-34 Automated erythrocyte mean corpuscular hemoglobin concentration measurement ( mass/volume) 34 g/dL 32-36 Automated erythrocyte distribution width ratio 13.9 % 10.0-14.5 Automated blood platelet count (count/volume) 160 10*3/uL 130-400 Automated blood platelet mean volume measurement 10.7 [foz_ us] 7.4-10.4 Automated blood neutrophils/100 leukocytes 64 % 42-75 Automated blood lymphocytes/100 leukocytes 21 % 12-44 Blood monocytes/100 leukocytes 13 % 0-12 Automated blood eosinophils/100 leukocytes 2 % 0-10 Automated blood basophils/100 leukocytes 0 % 0-10 Blood neutrophils automated count (number/volume) 6.6 10*3 1.8-7.8 Blood lymphocytes automated count (number/volume) 2.2 10*3 1.0-4.0 Blood monocytes automated count (number/volume) 1.3 10*3 0.0-1.0 Automated eosinophil count 0.2 10*3/uL 0.0-0.3 Automated blood basophil count (count/volume) 0.0 10*3/uL 0.0-0.1 PT panel in platelet poor plasma by coagulation assay - 02/19/17 12:20 Prothrombin time (PT) in platelet poor plasma by coagulation assay 17.8 s 12.2-14.7 INR in platelet poor plasma or blood by coagulation assay 1.5 0.8-1.4 Activated partial thromboplastin time (aPTT) in platelet poor plasma bycoagulation assay - 02/19/17 12:20 Activated partial thromboplastin time (aPTT) in platelet poor plasma bycoagulation assay 46 s 24-35 Comprehensive metabolic panel - 02/19/17 12:20 Serum or plasma sodium measurement (moles/volume) 138 mmol/ L 135-145 Serum or plasma potassium measurement (moles/volume) 4.4 mmol/L 3.6-5.0 Serum or plasma chloride measurement (moles/volume) 102 mmol /L 98-107 Carbon dioxide 28 mmol/L 21-32 Serum or plasma anion gap determination (moles/volume) 8 mmol/L 5-14 Serum or plasma urea nitrogen measurement (mass/volume) 63 mg/dL 7-18 Serum or plasma creatinine measurement (mass/volume) 1.48 mg /dL 0.60-1.30 Serum or plasma urea nitrogen/creatinine mass ratio 43 NRG Serum or plasma creatinine measurement with calculation of estimated glomerular filtration rate 50 NRG Serum or plasma glucose measurement (mass/volume) 156 mg/dL 70-105 Serum or plasma calcium measurement (mass/volume) 8.9 mg/dL 8.5-10.1 Serum or plasma total bilirubin measurement (mass/volume) 1.0 mg/dL 0.1-1.0 Serum or plasma alkaline phosphatase measurement (enzymatic activity/volume) 114 U/L 40-136 Serum or plasma aspartate aminotransferase measurement (enzymatic activity/ volume) 23 U/L 5-34 Serum or plasma alanine aminotransferase measurement (enzymatic activity/volume ) 38 U/L 0-55 Serum or plasma protein measurement (mass/volume) 6.5 g/dL 6.4-8.2 Serum or plasma albumin measurement (mass/volume) 3.7 g/dL 3.2-4.5 Magnesium - 02/19/17 12:20 Magnesium 2.4 mg/dL 1.8-2.4 Serum or plasma troponin i.cardiac measurement (mass/volume) - 02/19/17 12:20 Serum or plasma troponin i.cardiac measurement (mass/volume) < ng/mL <0.30 Myoglobin, serum - 02/19/17 12:20 Myoglobin, serum 55.0 ng/mL 10.0-92.0 Serum or plasma lithium measurement (moles/volume) - 02/19/17 12:20 BNP level 426.5 pg/mL <100.0 Serum or plasma troponin i.cardiac measurement (mass/volume) - 02/19/17 14:30 Serum or plasma troponin i.cardiac measurement (mass/volume) < ng/mL <0.30 Encounters ACCT No. Visit Date/Time Discharge Status Pt. Type Provider Facility Loc./Unit Complaint [id number] 12/22/2016 11:20:00 2016 14:49:00 DIS Emergency ITZ HUGHES MD [facility] ER SOA/RETAINING FLUID [id number] 10/03/2015 14:45:00 2014 23:59:59 CLS Outpatient DEBORA GASCA [facility] CARD AFIB [id number] 06/09/2015 12:47:00 2014 23:59:59 CLS Outpatient DENISE NOONAN MD [facility] RT HIGH RISK MEDICATION [id number] 04/19/2015 10:41:00 2014 23:59:59 CLS Outpatient BRENDAN UGARTE DO [facility] RAD PLEURAL EFFUSION [id number] 04/17/2015 13:45:00 2014 23:59:59 CLS Preadmit MAX THOMSON MD [facility] RAD ASCITIES [id number] 04/13/2015 10:57:00 2014 16:55:00 DIS Outpatient MAX THOMSON MD [facility] SDC UMBILICAL HERNIA [id number] 04/12/2015 11:36:00 2014 23:59:59 CLS Outpatient MAX THOMSON MD [facility] PREOP UMBILICAL HERNIA [id number] 03/23/2015 07:30:00 2014 23:59:59 CLS Outpatient ADDY SPARROW FACC, ALI FACP CCDS [facility] CARD CAD,AFIB, [id number] 02/26/2015 17:53:00 2014 19:59:00 DIS Emergency AMAURI WANG DO [facility] ER SOA [id number] 05/20/2014 16:23:00 2013 12:03:00 DIS Inpatient ADDY SPARROW FACC, ANDRE ROGERS CCDS [facility] ICU DEFIB. SHOCK [id number] 02/10/2014 15:33:00 2013 23:59:59 CLS Outpatient BRENDAN UGARTE DO [facility] RAD COUGH [id number] 09/06/2013 10:03:00 2012 23:59:59 CLS Outpatient DEBORA GASCA [facility] LAB POSITIVE MRSA SWAB [id number] 08/24/2013 08:09:00 2012 15:10:00 DIS Outpatient ADDY SPARROW FACC, ANDRE ROGERS CCDS [facility] CATH CAD,ANGINA,SOB,FATIGUE [id number] 04/21/2013 11:21:00 2012 11:00:00 DIS Outpatient ADDY SPARROW FACC, ANDRE ROGERS CCDS [facility] CR STENT [id number] 04/07/2013 09:04:00 2012 23:59:59 CLS Outpatient DEBORA GASCA [facility] RAD CAROTID ARTERIAL DISEASE [id number] 02/19/2017 12:34:00 Document Registration [id number] 12/30/2016 12:58:00 ACT Outpatient BRENDAN UGARTE DO [facility] RAD COUGH,SOB [id number] 12/30/2016 10:15:00 PEN Preadmit TOÑITO SAN DO [facility] PULM DYSPNEA,RESTRICTIVE LUNG DISEASE,OBESITY [id number] 12/20/2016 09:24:00 ACT Outpatient TOÑITO SAN DO [facility] RAD DYSPNEA,RESTRICTIVE LUNG DISEASE,OBESITY [id number] 12/04/2016 13:02:00 ACT Outpatient TOÑITO SAN DO [facility] RT RESTRICIVE LUNG DISEASE [id number] 11/19/2016 12:49:00 ACT Outpatient TOÑITO SAN DO [facility] RAD RESTRICTIVE LUNG DISEASE [id number] 10/15/2016 11:40:00 Document Registration [id number] 03/23/2013 09:06:00 Document Registration [id number] 01/18/2013 12:42:00 Document Registration [id number] 07/21/2012 05:34:00 Document Registration [id number] 07/20/2012 08:00:00 Document Registration [id number] 05/18/2012 13:10:00 Document Registration [id number] 01/09/2012 06:34:00 Document Registration [id number] 01/06/2012 08:26:00 Document Registration [id number] 07/09/2011 09:46:00 Document Registration [id number] 02/26/2011 12:30:00 Document Registration [id number] 09/27/2010 12:18:00 Document Registration [id number] 08/21/2010 07:21:00 Document Registration [id number] 06/16/2010 12:10:00 Document Registration
== END 2017-02-19 15:09 | disposition home or self-care (01) ==
LOC: EDUNIT# 12:16 → ER 12:18
DX: R07.9 Chest pain, unspecified (principal); R06.02 Shortness of breath; I10 Essential (primary) hypertension; E11.9 Type 2 diabetes mellitus without complications; Z79.82 Long term (current) use of aspirin; Z79.899 Other long term (current) drug therapy; Z95.5 Presence of coronary angioplasty implant and graft; Z95.1 Presence of aortocoronary bypass graft; Z95.810 Presence of automatic (implantable) cardiac defibrillator
CPT/HCPCS: 36415; 71010; 80053; 83735; 83874; 83880; 84484; 85025; 85610; 85730; 93005; 93041; 96360

== ENCOUNTER → 2017-02-27 | Outpatient (CLI) | payer MEDICARE, MEDICAID ==
[~2017-02-27] MED LIST changes: +CATHETER FLUSH 10 ML SYR IV PRN; +REGADENOSON 0.4 MG/5 ML SYR (LEXISCAN) IV ONE
[2017-02-27 09:49] VITALS: BP 92/54
--- NOTE | 2017-02-28 07:23 | STRESS TEST ---
PROCEDURE PHYSICIAN: ANDRE SUAREZ RESTING AND POST REGADENOSON TECHNETIUM 99M TETROFOSMIN SPECT CT IMAGING DATE OF PROCEDURE: 02/27/2017 ORDERING PHYSICIAN: Kayla Akers APRN. PRIMARY PHYSICIAN: Dr. Andrea. OTHER PHYSICIAN: Dr. Suarez CLINICAL DIAGNOSIS: Coronary artery disease, ischemic cardiomyopathy, chest discomfort. Baseline images were carried out after injection of 10.28 mCi of technetium 99m tetrofosmin. This was followed by 0.4 mg of regadenoson and 29.2 mCi of technetium 99m tetrofosmin for stress imaging. The electrocardiogram showed atrial fibrillation and left bundle branch block morphology. The electrocardiogram did not change significantly with regadenoson infusion. Isolated and coupled premature ventricular contractions were seen. Overall, he tolerated the procedure well. Review of images at rest and following stress, indicates anteroapical perfusion defect which is a relatively large and predominantly fixed. Gated images show global hypokinesia of the left ventricle and anteroapical akinesis to dyskinesis. Left ventricular ejection fraction is calculated to be 15%. Left ventricular end-diastolic volume is 180 mL. TID is absent (1.08) CONCLUSIONS: 1. Ischemic cardiomyopathy with a large anteroapical infarction without significant ischemia. 2. Significant cardiomegaly. 3. Global hypokinesis of the left ventricle. 4. Anteroapical akinesis to dyskinesis. 5. Left ventricular ejection fraction is calculated to be 15%. Job ID: [id number] Dictated Date: 02/27/2017 13:30:21 Warp Clamper Date: 02/28/2017 07:17:35 / filemon
== END ==
LOC: CARD 07:38
PROVIDERS: ATTEND Nurse Practitioner Family
DX: I25.10 Atherosclerotic heart disease of native coronary artery without angina pectoris (principal); I25.5 Ischemic cardiomyopathy; R07.89 Other chest pain; E78.4 Other hyperlipidemia; I34.0 Nonrheumatic mitral (valve) insufficiency
CPT/HCPCS: 78452; 93017